=== PATIENT | female | born 1940 | race Caucasian/White ===

== ENCOUNTER 2022-05-06 15:00 | Inpatient (IN) | payer MEDICARE, OTHER, SELFPAY ==
--- NOTE | ~2022-05-06 | MR_ITS ---
EXAMINATION: MRI OF THE BRAIN WITHOUT CONTRAST CLINICAL INFORMATION: Vertigo. Assess for cerebellar infarction. COMPARISON: CT scan of the head 05/06/2022. TECHNIQUE: MRI of the brain was obtained using routine sequences without contrast. FINDINGS: There is a punctate focus of increased diffusion signal in the left centrum semiovale probably, which has slightly hyperintense ADC map signal with corresponding hyperintense T2/FLAIR signal, consistent with a subacute infarct. No other diffusion abnormalities are demonstrated. No mass effect or midline shift is seen. There is mild commensurate prominence of the ventricles and sulci consistent with diffuse volume loss. There are extensive areas of increased T2 and FLAIR signal in the periventricular and subcortical white matter, and in the sam which are most consistent with chronic microvascular ischemic changes. There are chronic lacunar infarcts in the basal ganglia and periventricular regions bilaterally, and there are chronic infarcts in the bilateral cerebellar hemispheres. No extra-axial fluid collections are seen. No pathologic magnetic susceptibility artifact is identified on the gradient refocused acquisition. The craniovertebral junction, marrow signal, and midline structures are normal. The major intracranial flow-voids at the level of the [place] are preserved. The dural venous sinus flow-voids are maintained. There is moderate right and trace left fluid in the mastoid air cells. There is mucoperiosteal thickening in the bilateral ethmoid sinuses. The right frontal sinus is hypoplastic. MR/MR head/brain wo con IMPRESSION: 1. There is likely a punctate subacute infarct in the left centrum semiovale. There is no evidence of acute infarction or hemorrhage. No masses are demonstrated. 2. There is diffuse volume loss and there is extensive chronic microvascular ischemic disease with chronic lacunar infarcts as described above.
--- NOTE | ~2022-05-06 | CT_ITS ---
EXAMINATION: CT HEAD WITHOUT CONTRAST CLINICAL INFORMATION: Dizziness. COMPARISON: None. TECHNIQUE: Contiguous axial imaging was performed from the skull base to vertex without intravenous administration of contrast. This CT examination was performed using dose optimization techniques as appropriate, variously including the following: *Automated exposure control *Adjustment of mA and/or kV according to patient size (this includes techniques or standardized protocols for targeted exams where dose is matched to indication/reason for exam; i.e. extremities or head) *Use of iterative reconstruction technique DLP: 703 mGy-cm. FINDINGS: There is no intracranial hemorrhage, large infarction, or mass lesion. There is no extra-axial collection. The ventricles are normal in size and configuration without evidence of hydrocephalus. Moderate patchy hypoattenuation is seen within the cerebral white matter, typical of chronic microangiopathy. There is a small chronic lacunar infarct in the right cerebellum. The visualized paranasal sinuses and mastoid air cells are clear. The calvarium is intact. CT/CT head/brain wo IV con IMPRESSION: No acute intracranial abnormality. Background changes of chronic microangiopathy. Small chronic lacunar infarct in the right cerebellum.
--- NOTE | ~2022-05-06 | XR_ITS ---
EXAMINATION: XR CHEST CLINICAL INFORMATION: Dizziness COMPARISON: None TECHNIQUE: Portable upright AP view of the chest was obtained. FINDINGS: There is no pneumothorax, segmental or lobar airspace consolidation, or groundglass opacity. The costophrenic sulci are clear. There is small nodule right lateral base and small nodule left lateral base, both just under 5 mm, unknown chronicity. The heart is normal in size. The hilar and mediastinal contours are unremarkable. There are degenerative changes thoracic spine. XR/XR chest 1V IMPRESSION: 1. No pneumothorax, airspace consolidation, or effusion. 2. Small nodule right lateral base and left lateral base, both just under 5 mm, unknown chronicity.
--- NOTE | ~2022-05-06 | US_ITS ---
EXAMINATION: US EXTRACRANIAL CAROTID DUPLEX, BILATERAL CLINICAL INFORMATION: Stroke COMPARISON: None TECHNIQUE: Real-time ultrasound and Doppler techniques (integrating B-mode 2-D vascular images, Doppler spectral analysis and color-flow Doppler imaging) were utilized to interrogate the extracranial carotid arteries, the vertebral arteries and proximal subclavian arteries bilaterally. The degree of stenosis is determined by criteria similar to NASCET. FINDINGS: Right Side: 1. There is minimal atherosclerotic plaque seen in the bifurcation/proximal ICA region. 2. The common carotid artery PSV proximally is 71 cm/s and distally 47 cm/s. 3. The proximal internal carotid artery velocities are 42 cm/s systolic and 17 cm/s diastolic. 4. The proximal external carotid artery PSV is 97 cm/s. 5. The vertebral artery shows antegrade flow. 6. The subclavian artery waveforms are normal. Left Side: 1. There is minimal atherosclerotic plaque seen in the bifurcation/proximal ICA region. 2. The common carotid artery PSV proximally is 58 cm/s and distally 64 cm/s. 3. The proximal internal carotid artery velocities are 39 cm/s systolic and 18 cm/s diastolic. 4. The proximal external carotid artery PSV is 86 cm/s. 5. The vertebral artery shows antegrade flow. 6. The subclavian artery waveforms are normal. US/US carotid duplex BI IMPRESSION: 1. RIGHT: Minimal, non-hemodynamically significant stenosis of the proximal right internal carotid artery corresponding to a 0-49% stenosis by velocity criteria. 2. LEFT: Minimal, non-hemodynamically significant stenosis of the proximal left internal carotid artery corresponding to a 0-49% stenosis by velocity criteria.
--- NOTE | 2022-05-06 15:21 | ECG_ITS ---
Test Reason : general medical Blood Pressure : / mmHG Vent. Rate : 087 BPM Atrial Rate : 087 BPM P-R Int : 204 ms QRS Dur : 074 ms QT Int : 384 ms P-R-T Axes : 030 -24 010 degrees QTc Int : 462 ms Normal sinus rhythm ST & T wave abnormality, consider anterior ischemia Abnormal ECG No previous ECGs available Referred By: Claudia Goddard Electronically Signed By:MARQUITA LARSON
[2022-05-06 15:24] VITALS: BP 124/72; BP 131/84; PULSE 88; PULSE 90; RESP 20; O2SAT 90; O2SAT 95; BMI 25.0
--- NOTE | 2022-05-06 15:24 | ED.GENADULT ---
HPI - General Adult General Chief complaint: General Medical Stated complaint: DIZZY,WEAK,NAUSEA,VOMITING PER EMS Time Seen by Provider: 05/06/22 15:11 Source: patient and EMS Mode of arrival: EMS Limitations: no limitations History of Present Illness HPI narrative: 82 year old female came in by EMS from intermediate for evaluation of generalized weakness, chills, body aches, nausea, vomiting, dizziness ( room spinning) no known sick contact that the patient exposed to, however patient lives in the intermediate. Patient also complaining of chest pain with coughing but no SOB. No fever. No weakness or numbness. Patient mainly here today for vertigo for the past 2 days feeling room spinning, declined any focal weakness or numbness. No nausea or vomiting. Related Data Allergies Allergy/AdvReac Type Severity Reaction Status Date / Time No Known Allergies Allergy Verified 05/06/22 15:21 Review of Systems Review of Systems: All other systems are reviewed and are negative Constitutional: Reports as per HPI and Reports no additional constitutional complaints Eyes: Reports as per HPI and Reports no additional eye complaints Reports system reviewed and no additional complaints, except as documented Cardiovascular: Reports as per HPI and Reports no additional cardiovascular complaints Respiratory: Reports as per HPI and Reports no additional respiratory complaints Gastrointestinal: Reports as per HPI and Reports no additional gastrointestinal complaints Genitourinary: Reports no additional female genitourinary complaints Musculoskeletal: Reports no additional musculoskeletal complaints Skin/Breast: Reports system reviewed and no additional complaints, except as docu Psychiatric: Reports no additional psychiatric complaints Endocrine: Reports no additional endocrine complaints Hematologic/Lymphatic: Reports no additional hematologic/lymphatic complaints Allergic/Immunologic: Reports no additional allergic/immunologic complaints Reports system reviewed and no additional complaints, except as documented and Reports Abnormal speech present PMFSH Social History Social History Alcohol intake: never Smoked in Last 30 Days: No Use of substances other than those prescribed or required for medical reasons: No Advance Directives: No Advance Directives Information Provided: Yes Physical Exam ED Vital Signs: Vital Signs - 24 hr 05/06/22 15:24 05/06/22 15:54 05/06/22 17:15 Temperature 98.2 F 99.2 F Pulse Rate 88 89 80 Respiratory Rate 20 28 H 18 Blood Pressure 131/84 131/84 134/81 Pulse Oximetry 95 96 97 Oxygen Delivery Method Nasal Cannula Nasal Cannula Nasal Cannula Oxygen Flow Rate 2 2 BMI result Body Mass Index 25.0 vital signs have been reviewed as appeared to be correct. Blood pressure normal. Heart rate normal. Respiration rate normal. Temperature normal. Oxygen saturation normal. Appearance: Alert. Oriented X3. No acute distress. Head: Normal external exam. Normocephalic. Atraumatic. No [place] signs noted. No raccoon eyes noted Eyes: PERRLA. EOMI. Conjunctiva and sclera normal. Eyelids normal. ENT: TM's Normal. Pharynx normal. Uvula midline. Moist mucous membranes. No trismus noted. No drooling noted. No muffled voice noted. Neck: Normal inspection. Neck supple. FROM. No adenopathy. Thyroid Normal. No meningeal signs. No neck mass noted. CVS: Normal heart rate and rhythm. Heart sound normal. No murmurs noted. Pulses normal throughout. Respiratory: No respiratory distress. Painless inspiration. Breath sounds normal. No wheezes/rales/rhonchi noted. Chest nontender. No accessory muscle usage noted or decreased air movement noted. Abdomen: Soft and nontender. Bowel sounds normal in all 4 quadrants. No distention noted. No organomegaly noted. No visible injury noted. Back: No CVA tenderness. Full range of motion noted. Skin: Skin warm and dry. Normal skin color. Normal skin turgor. No rashes/lesions/lacerations noted. Extremities: No lower extremity edema. Extremities exhibit normal range of motion. Extremities nontender. Neuro: Oriented X 3. Cranial nerve exam: II-XII are grossly intact No motor deficit. No sensory deficit. Reflexes normal. Course Course Course Narrative: 82-year-old female with flu-like symptoms patient tested positive for the flu, patient also been having vertigo, CT/MRI revealing subacute infarction, will start the patient on aspirin and admitted for further neurological evaluation. Medications Administered Discontinued Medications Generic Name Dose Route Start Last Admin Trade Name Freq PRN Reason Stop Dose Admin Sodium Chloride 1,000 mls @ 999 mls/hr 05/06/22 15:21 05/06/22 18:53 Ns IV 05/06/22 16:21 Infused .Q1H1M ONE Infusion Meclizine HCl 25 mg 05/06/22 15:28 05/06/22 16:10 Meclizine Hcl 25 Mg Tablet PO 05/06/22 15:29 25 mg ONCE ONE Administration Medical Decision Making Differential Diagnosis Differential Diagnoses: The differential diagnosis associated with the presentation includes ( Influenza/ COVID 19 infection/ RSV / peripheral vertigo / cerebellar CVA.) Admission/Observation Consideration of admission/observation: Escalation of care including admission/observation considered Consult Healthcare Provider Management of the patient was discussed with: Hospitalist Lab Data MDM Lab Attestation statement: I reviewed the patient's lab results. Result Diagrams: 05/06/22 16:03 05/06/22 16:32 Labs: Lab Results 05/06/22 05/06/22 05/06/22 Range/Units 16:03 16:03 16:03 WBC 8.0 (4.8-10.8) X10*3/uL RBC 5.48 (4.20-5.50) X10*6/uL Hgb 14.7 (12.0-16.0) g/dl Hct 44.5 (37.0-47.0) % MCV 81.2 (80.0-98.0) fL MCH 26.8 L (27.0-33.0) pg MCHC 33.0 (31.0-35.0) g/dl RDW 14.4 (11.0-16.0) % Plt Count 237 (160-400) X10*3/uL MPV 9.3 L (9.4-12.3) fL Immature Gran % (Auto) 0.3 (0.0-0.4) % Neut % (Auto) 80.0 H (45-73) % Lymph % (Auto) 6.5 L (20-40) % [place] % (Auto) 12.4 H (2-11) % Eos % (Auto) 0.0 (0-4) % Baso % (Auto) 0.8 (0-2) % Lymph # (Auto) 0.5 L (1.2-4.9) X10*3/uL [place] # (Auto) 1.0 (0.1-1.2) X10*3/uL Eos # (Auto) 0.0 (0.0-0.4) X10*3/uL Baso # (Auto) 0.1 (0.0-0.2) X10*3/uL Abs Immat Gran (auto) 0.02 (0.00-0.03) X10*3/uL Absolute Neuts (auto) 6.4 (2.0-8.3) x10*3/uL Absolute Nucleated RBC 0.000 (0.0-0.012) X10*3/uL Nucleated RBC % (auto) 0.0 (0.0-0.2) /100WBC Sodium (135-145) mmol/L Potassium (3.3-5.1) mmol/L Chloride (96-108) mmol/L Carbon Dioxide (22-29) mmol/L Anion Gap (12-20) BUN (9-16) mg/dL Creatinine (0.5-1.4) mg/dL Estim Creat Clear Calc Estimated GFR Random Glucose (60-115) mg/dL Calcium (8.4-10.2) mg/dL Total Bilirubin (0.0-1.0) mg/dL Direct Bilirubin (0.0-0.5) mg/dL AST (5-31) U/L ALT (0-31) U/L Alkaline Phosphatase (39-117) U/L Troponin I High Sens 8.8 (<3.5-17.0) ng/L B-Natriuretic Peptide 35 (<100) pg/mL Total Protein (6.5-8.0) g/dL Albumin (3.5-5.0) g/dL Lipase (8-78) U/L Urine Color Urine Appearance Urine pH (5.0-9.0) Ur Specific [place] (1.005-1.025) Urine Protein (Neg-Trace) mg/dL Urine Glucose (UA) (Negative) mg/dL Urine Ketones (Negative) mg/dL Urine Blood (Negative) Urine Nitrite (Negative) Ur Leukocyte Esterase (Negative) Influenza Type A (PCR) (Negative) Influenza Type B (PCR) (Negative) RSV RNA Qual (PCR) (Negative) SARS-CoV-2 RNA (RT-PCR) (Negative) 05/06/22 05/06/22 05/06/22 Range/Units 16:03 16:32 20:55 WBC (4.8-10.8) X10*3/uL RBC (4.20-5.50) X10*6/uL Hgb (12.0-16.0) g/dl Hct (37.0-47.0) % MCV (80.0-98.0) fL MCH (27.0-33.0) pg MCHC (31.0-35.0) g/dl RDW (11.0-16.0) % Plt Count (160-400) X10*3/uL MPV (9.4-12.3) fL Immature Gran % (Auto) (0.0-0.4) % Neut % (Auto) (45-73) % Lymph % (Auto) (20-40) % [place] % (Auto) (2-11) % Eos % (Auto) (0-4) % Baso % (Auto) (0-2) % Lymph # (Auto) (1.2-4.9) X10*3/uL [place] # (Auto) (0.1-1.2) X10*3/uL Eos # (Auto) (0.0-0.4) X10*3/uL Baso # (Auto) (0.0-0.2) X10*3/uL Abs Immat Gran (auto) (0.00-0.03) X10*3/uL Absolute Neuts (auto) (2.0-8.3) x10*3/uL Absolute Nucleated RBC (0.0-0.012) X10*3/uL Nucleated RBC % (auto) (0.0-0.2) /100WBC Sodium 134 L (135-145) mmol/L Potassium 3.9 (3.3-5.1) mmol/L Chloride 101 (96-108) mmol/L Carbon Dioxide 25 (22-29) mmol/L Anion Gap 12 (12-20) BUN 19 H (9-16) mg/dL Creatinine 0.78 (0.5-1.4) mg/dL Estim Creat Clear Calc 51.7 Estimated GFR > 60 Random Glucose 104 (60-115) mg/dL Calcium 8.5 (8.4-10.2) mg/dL Total Bilirubin 0.6 (0.0-1.0) mg/dL Direct Bilirubin 0.2 (0.0-0.5) mg/dL AST 20 (5-31) U/L ALT 23 (0-31) U/L Alkaline Phosphatase 58 (39-117) U/L Troponin I High Sens (<3.5-17.0) ng/L B-Natriuretic Peptide (<100) pg/mL Total Protein 6.7 (6.5-8.0) g/dL Albumin 3.9 (3.5-5.0) g/dL Lipase 15 (8-78) U/L Urine Color Yellow Urine Appearance Clear Urine pH 5.5 (5.0-9.0) Ur Specific [place] 1.020 (1.005-1.025) Urine Protein Trace (Neg-Trace) mg/dL Urine Glucose (UA) Negative (Negative) mg/dL Urine Ketones Trace (Negative) mg/dL Urine Blood Small (1+) H (Negative) Urine Nitrite Negative (Negative) Ur Leukocyte Esterase Negative (Negative) Influenza Type A (PCR) POSITIVE A (Negative) Influenza Type B (PCR) NEGATIVE (Negative) RSV RNA Qual (PCR) NEGATIVE (Negative) SARS-CoV-2 RNA (RT-PCR) NEGATIVE (Negative) Independent Interpretation I performed an independent interpretation of an: EKG ( Normal sinus rhythm at 87 beats per minute, left axis deviation, first-degree AV block, T-wave inversion in V 1- V6 , no old EKG to compare.), Plain X-Ray ( No acute intrathoracic pathology.) and CT Scan ( No acute intracranial pathology.) Radiology Impression Discussion of test interpretation with radiology: I have reviewed the radiologist's reading. Discharge Plan Discharge Clinical Impression: Vertigo, Influenza A Patient Disposition: Admitted As Inpatient
[2022-05-06 15:54] VITALS: BP 131/84; PULSE 89; RESP 28; TEMP 36.8; O2SAT 96
[2022-05-06 16:09] LABS: MANUAL DIFF FLAG NO
[2022-05-06] MEDS: 0.9 % Sodium Chloride 1,000 ML 999 ML IV (16:10)
[2022-05-06] MEDS: Meclizine HCl 25 MG TABLET PO (16:10)
[2022-05-06 16:11] LABS: Basophils Absolute Auto 0.1 X10*3/uL (0.0-0.2); Basophils Percent Auto 0.8 % (0-2); Hematocrit 44.5 % (37.0-47.0); Hemoglobin 14.7 g/dl (12.0-16.0); Imm Gran Abs Auto 0.02 X10*3/uL (0.00-0.03); Imm Gran Pct Auto 0.3 % (0.0-0.4); Lymphocytes Absolute Auto 0.5 X10*3/uL (1.2-4.9); Lymphocytes Percent Auto 6.5 % (20-40); Mean Corpuscular Hemoglobin 26.8 pg (27.0-33.0); Mean Corpuscular Volume 81.2 fL (80.0-98.0); Mean Platelet Volume 9.3 fL (9.4-12.3); Monocytes Percent Auto 12.4 % (2-11); Neutrophils Absolute Auto 6.4 x10*3/uL (2.0-8.3); Platelet Count 237 X10*3/uL (160-400); Red Blood Count 5.48 X10*6/uL (4.20-5.50); Red Cell Distribution Width 14.4 % (11.0-16.0)
[2022-05-06 16:37] LABS: Troponin-I High Sensitivity 8.8 ng/L (<3.5-17.0)
[2022-05-06 16:59] LABS: Alanine Aminotransferase 23 U/L (0-31); Albumin Level 3.9 g/dL (3.5-5.0); Alkaline Phosphatase 58 U/L (39-117); Anion Gap 12 (12-20); Aspartate Amino Transferase 20 U/L (5-31); Bilirubin Direct 0.2 mg/dL (0.0-0.5); Bilirubin Total 0.6 mg/dL (0.0-1.0); Blood Urea Nitrogen 19 mg/dL (9-16); Calcium 8.5 mg/dL (8.4-10.2); Carbon Dioxide 25 mmol/L (22-29); Chloride 101 mmol/L (96-108); Creatinine Clr Calc Pharmacy 51.7; Estimated Glomerular Filt Rate > 60; Glucose Random 104 mg/dL (60-115); Lipase 15 U/L (8-78); Potassium 3.9 mmol/L (3.3-5.1); Sodium 134 mmol/L (135-145); Total Protein 6.7 g/dL (6.5-8.0)
[2022-05-06 17:15] VITALS: BP 134/81; PULSE 80; RESP 18; TEMP 37.3; O2SAT 97
[2022-05-06 18:22] LABS: B Type Natriuretic Peptide 35 pg/mL (<100)
[2022-05-06 20:10] LABS: Influenza A PCR POSITIVE (Negative); Influenza B PCR NEGATIVE (Negative); Resp Syncy Virus RNA Qual PCR NEGATIVE (Negative); SARS COV2 PCR INHOUSE NEGATIVE (Negative)
[2022-05-06 21:05] LABS: Appearance Urine Clear; Color Urine Yellow; Glucose Urine UA Negative (Negative); Leukocyte Esterase Urine Negative (Negative); Nitrite Urine Negative (Negative); PH 5.5 (5.0-9.0); UMIC TRIGGER UACC YES; Urine Blood Small (1+) (Negative); Urine Ketones Trace mg/dL (Negative); Urine Protein Trace mg/dL (Neg-Trace)
[2022-05-06] MEDS: Aspirin Enteric Coated 81 MG TABLET.DR PO (21:27)
--- NOTE | 2022-05-06 21:28 | PC.NURSE ---
nurse swallow eval performed by this rn. JEFF. pt medicated according to mar
--- NOTE | 2022-05-06 21:39 | P.HPHOSP_ITS ---
History of Present Illness Date of Service: 05/06/22 Chief Complaint: vomiting 82-year-old female With a past medical history of COPD presents to the hospital with complaints of vomiting, as well as vertigo and generalized weakness.. Patient reports that she of significant nausea and vomiting the night prior to as presentation, she woke up feeling very dizzy and generally weak. Patient reports that she has chronic weakness in her lower extremity but has not worsened. She uses a walker at baseline. Denies any upper extremity weakness numbness or tingling, no facial droop or changes in her speech. Margarita ent denies any cough, no shortness of breath, no fever or chills. Denies any chest pain, no palpitations, no abdominal pain, no diarrhea constipation, no urinary symptoms. On arrival to the ED patient hemodynamically stable (Patient reports that she uses oxygen at baseline 2 L but usually does not need it) Labs are significant for WBC count of 8.0, hemoglobin 14.7, hematocrit 44.56, labs otherwise unremarkable, UA positive for blood with no acute infection, Viral serology shows positive influenza A chest x-ray shows no pneumothorax airspace consolidation or effusion, to lung nodules less than [address] done shows no acute intracranial abnormality, background changes of chronic microangiopathy, given the vertigo patient underwent MRI of the brain which showed a likely punctate subacute infarct in the left centrum semiovale and diffuse volume loss with chronic microvascular ischemic disease and chronic lacunar infarct patient will be admitted for further management Review of Systems Review of Systems: Yes all other systems are reviewed and are negative [facility] Medical History (Updated 05/07/22 @ 05:29 by Colten Lux MD) History of breast cancer History of COPD History of gastroesophageal reflux (GERD) Surgical History (Updated 05/07/22 @ 05:27 by Colten Lux MD) History of left mastectomy History of tonsillectomy Social History (Updated 05/07/22 @ 05:27 by Colten Lux MD) Alcohol intake: never Patient Tobacco Use Status: Former Tobacco user Smoked in Last 30 Days: No Use of substances other than those prescribed or required for medical reasons: No Advance Directives: No Advance Directives Information Provided: Yes Meds Allergies Allergy/AdvReac Type Severity Reaction Status Date / Time No Known Allergies Allergy Verified 05/06/22 15:21 Active Medications: Current Medications Aspirin (Aspirin Enteric Coated 81 Mg Tablet.) 81 mg PO DAILY [facility] Last Admin: 05/06/22 21:27 Dose: 81 mg Home Medications Medication Instructions Recorded Confirmed Last Taken Type fluticasone propionate 50 2 spray intranasal DAILY 05/06/22 05/06/22 Unknown History mcg/actuation nasal spray,suspension Physical Exam Vital Signs and Narrative: Vital Signs: Last Vital Signs Temp 99.2 F 05/06/22 17:15 Pulse 80 05/06/22 17:15 Resp 18 05/06/22 17:15 BP 134/81 05/06/22 17:15 Pulse Ox 97 05/06/22 17:15 O2 Del Method 05/06/22 17:15 O2 Flow Rate 2 05/06/22 17:15 Oxygen Flow Rate 2 05/06/22 15:24 BMI result Body Mass Index 25.0 Const: General: cooperative and no acute distress Orientation/consciousness: patient oriented x3 HEENT: Other: slightly hard of hearing Eyes: General: appearance normal, both eyes and all related structures Resp: Effort & Inspection: normal respiratory effort Auscultation: clear to auscultation bilaterally Cardio: Rate: regular rate Rhythm: regular rhythm GI: Palpation (GI): Soft to palpation Auscultation: normal bowel sounds Skin: General skin exam: no rashes or lesions noted Neuro: Other: no neurological deficits, strength his 5/5 in upper extremities, slightly weaker in the lower extremities with no significant deficit General: patient oriented x3 Cognition (Neuro): normal cognition Extrem: General: Yes normal to inspection and Yes no pedal edema Results Labs CBC and Chem 7: 05/06/22 16:03 05/06/22 16:32 Labs: Laboratory Results - last 24 hr 05/06/22 05/06/22 05/06/22 16:03 16:03 16:03 MCV 81.2 MCH 26.8 L MCHC 33.0 RDW 14.4 Plt Count 237 MPV 9.3 L Immature Gran % (Auto) 0.3 Neut % (Auto) 80.0 H Lymph % (Auto) 6.5 L [place] % (Auto) 12.4 H Eos % (Auto) 0.0 Baso % (Auto) 0.8 Lymph # (Auto) 0.5 L [place] # (Auto) 1.0 Eos # (Auto) 0.0 Baso # (Auto) 0.1 Abs Immat Gran (auto) 0.02 Absolute Neuts (auto) 6.4 Absolute Nucleated RBC 0.000 Nucleated RBC % (auto) 0.0 Anion Gap Estim Creat Clear Calc Estimated GFR Random Glucose Calcium Total Bilirubin Direct Bilirubin AST ALT Alkaline Phosphatase Troponin I High Sens 8.8 B-Natriuretic Peptide 35 Total Protein Albumin Lipase Urine Color Urine Appearance Urine pH Ur Specific [place] Urine Protein Urine Glucose (UA) Urine Ketones Urine Blood Urine Nitrite Ur Leukocyte Esterase Influenza Type A (PCR) Influenza Type B (PCR) RSV RNA Qual (PCR) SARS-CoV-2 RNA (RT-PCR) 05/06/22 05/06/22 05/06/22 16:03 16:32 20:55 MCV MCH MCHC RDW Plt Count MPV Immature Gran % (Auto) Neut % (Auto) Lymph % (Auto) [place] % (Auto) Eos % (Auto) Baso % (Auto) Lymph # (Auto) [place] # (Auto) Eos # (Auto) Baso # (Auto) Abs Immat Gran (auto) Absolute Neuts (auto) Absolute Nucleated RBC Nucleated RBC % (auto) Anion Gap 12 Estim Creat Clear Calc 51.7 Estimated GFR > 60 Random Glucose 104 Calcium 8.5 Total Bilirubin 0.6 Direct Bilirubin 0.2 AST 20 ALT 23 Alkaline Phosphatase 58 Troponin I High Sens B-Natriuretic Peptide Total Protein 6.7 Albumin 3.9 Lipase 15 Urine Color Yellow Urine Appearance Clear Urine pH 5.5 Ur Specific [place] 1.020 Urine Protein Trace Urine Glucose (UA) Negative Urine Ketones Trace Urine Blood Small (1+) H Urine Nitrite Negative Ur Leukocyte Esterase Negative Influenza Type A (PCR) POSITIVE A Influenza Type B (PCR) NEGATIVE RSV RNA Qual (PCR) NEGATIVE SARS-CoV-2 RNA (RT-PCR) NEGATIVE Imaging Radiologist's Impressions: Impressions Chest X-Ray 05/06/22 15:35 IMPRESSION: 1. No pneumothorax, airspace consolidation, or effusion. 2. Small nodule right lateral base and left lateral base, both just under 5 mm, unknown chronicity. Head CT 05/06/22 15:48 IMPRESSION: No acute intracranial abnormality. Background changes of chronic microangiopathy. Small chronic lacunar infarct in the right cerebellum. Brain MRI 05/06/22 19:50 IMPRESSION: 1. There is likely a punctate subacute infarct in the left centrum semiovale. There is no evidence of acute infarction or hemorrhage. No masses are demonstrated. 2. There is diffuse volume loss and there is extensive chronic microvascular ischemic disease with chronic lacunar infarcts as described above. Assessment and Plan (1) CVA (cerebral vascular accident): Status: Acute (2) Influenza A: Status: Acute (3) Vertigo: Status: Acute Plan this is an 82-year-old female with past medical history of COPD as well as remote history of breast cancer presents to the hospital with complaints of vomiting, as well as dizziness found to have acute influenza infection as well as subacute infarct # CVA - no history of underlying arrhythmias that are known - patient denies any underlying risk factors - at this time will start patient on aspirin, high-dose statin - will obtain carotid Dopplers, echocardiogram - neurology consulted - PT OT # vertigo - likely secondary to above - PT OT consulted # influenza a infection - no acute respiratory failure, patient uses 2 L of oxygen at baseline - will start her on Tamiflu # history of COPD - no exacerbation - continue home inhaler DVT prophylaxis: Early ambulation given patient's new CVA, patient require minimum 2 night inpatient hospital stay further evaluation and monitoring Time Spent With Patient Time: Total time managing care of this patient today ____ minutes. Quality Stroke Does the patient have a stroke diagnosis?: No VTE Prior VTE?: No VTE Risk Level:: Medical - low VTE Device Contraindication: N/A - Device Ordered VTE Drug Contraindication: Treatment Not Indicated
[2022-05-06 21:41] LABS: Bacteria Urine None Seen (None Seen); Hyaline Casts Urine 0-2 /LPF (0-2); WBC Urine 0-5 /HPF (0-5)
--- NOTE | 2022-05-06 22:03 | PHA.MEDREC ---
Pharmacy Consult ? Medication Reconciliation Pharmacy has completed the medication reconciliation. sPOKE WITH PATIENT IN THE ED
[2022-05-07] VITALS (11 sets, daily range): BP systolic 94–155; BP diastolic 53–80; PULSE 62–93; RESP 15–18; TEMP 36.2–37.8; O2SAT 93–98; BMI 24.9
[2022-05-07] MEDS: Oseltamivir Phosphate 75 MG CAPSULE PO ×3 (00:03→23:19)
--- NOTE | 2022-05-07 00:33 | PC.NURSE ---
this rn attempted to give nurse to nurse report. no answer on phone once transferred to floor. will try again
--- NOTE | 2022-05-07 00:50 | PC.NURSE ---
this rn attempted again to call nurse to nurse report. this rn unable to give report at this time
[2022-05-07 06:02] LABS: MANUAL DIFF FLAG NO
[2022-05-07 06:14] LABS: Basophils Absolute Auto 0.1 X10*3/uL (0.0-0.2); Basophils Percent Auto 0.8 % (0-2); Eosinophils Absolute Auto 0.1 X10*3/uL (0.0-0.4); Eosinophils Percent Auto 1.2 % (0-4); Hematocrit 41.6 % (37.0-47.0); Hemoglobin 13.4 g/dl (12.0-16.0); Imm Gran Abs Auto 0.02 X10*3/uL (0.00-0.03); Imm Gran Pct Auto 0.3 % (0.0-0.4); Lymphocytes Percent Auto 16.7 % (20-40); Mean Corpuscular HGB Conc 32.2 g/dl (31.0-35.0); Mean Corpuscular Volume 83.7 fL (80.0-98.0); Mean Platelet Volume 9.7 fL (9.4-12.3); Monocytes Absolute Auto 0.8 X10*3/uL (0.1-1.2); Monocytes Percent Auto 12.8 % (2-11); Neutrophils Absolute Auto 4.1 x10*3/uL (2.0-8.3); Neutrophils Percent Auto 68.2 % (45-73); Platelet Count 193 X10*3/uL (160-400); Red Blood Count 4.97 X10*6/uL (4.20-5.50); Red Cell Distribution Width 14.5 % (11.0-16.0)
[2022-05-07 06:45] LABS: Anion Gap 12 (12-20); Blood Urea Nitrogen 18 mg/dL (9-16); Calcium 7.6 mg/dL (8.4-10.2); Carbon Dioxide 22 mmol/L (22-29); Chloride 106 mmol/L (96-108); Creatinine Clr Calc Pharmacy 56.9; Estimated Glomerular Filt Rate > 60; Glucose Random 82 mg/dL (60-115); Potassium 3.9 mmol/L (3.3-5.1); Sodium 136 mmol/L (135-145)
[2022-05-07 06:48] LABS: Cholesterol 115 mg/dL; HDL Cholesterol 37 mg/dL; LDL Cholesterol Calculated 69 mg/dl; Triglycerides 48 mg/dL
--- NOTE | 2022-05-07 07:00 | CA_ITS ---
Transthoracic Echocardiogram Patient (Last, First, Middle): Tatum Johns, Gender: Female Date of : 1940 Age: 82 Procedure Date: 05/07/2022 Procedure Type: Transthoracic Echocardiogram Location: [facility] [place] Height: 165.1 cm Weight: 67.59 kg BSA: 1.75 m2 Heart Rate: bpm BP: 126 / 70 mmHg Stage Set Designer: Referring MD: Colten Lux MD Symptoms: stroke Study Quality: Adequate ECG Rhythm: Sinus Conclusions: - The left ventricular systolic function is normal. The visually estimated ejection fraction is between 65-70%. - No obvious valvular pathology seen on this study. Findings Left Ventricle Normal left ventricular cavity size. There is mildly increased left ventricular wall thickness. The left ventricular systolic function is normal. The visually estimated ejection fraction is between 65-70%. There is no evidence of regional wall motion abnormalities. Diastolic function is normal for age. Right Ventricle Normal right ventricular cavity size and systolic function. Atria Both atria are normal in size. Aortic Valve The aortic valve was not well visualized. There is no aortic valve stenosis. There is no aortic valve regurgitation. Mitral Valve The mitral valve appears normal. There is no mitral valve regurgitation. There is no mitral valve stenosis. Pulmonic Valve The pulmonic valve is likely normal. Tricuspid Valve There is trace tricuspid valve regurgitation. There is no evidence of pulmonary hypertension. Great Vessels The aorta was not well visualized. The sinuses of valsalva is normal in size. Venous The inferior vena cava is normal in size and collapses greater than 50% with inspiration. Pericardium/Pleural There is no evidence of pericardial effusion. Prior Study Comparison No prior study available for comparison. Recommendations, Care & Conclusions No obvious valvular pathology seen on this study. Measurements 2D Linear Measurements IVSd: 1.20 0.6-0.9/0.6-1.0 cm LVIDd: 4.42 3.9-5.3/4.2-5.9 cm LVIDd Index: 2.53 2.4-3.2/2.2-3.1 cm/m2 LVIDs: 2.53 2.0-3.6 cm LVPWd: 1.21 0.7-1.1 cm Ao Root: 3.60 2.1-3.5 cm LA Diam: 2.70 2.7-3.8/3.0-4.0 cm LAIDs Index: 1.54 1.5-2.3 cm/m2 LV Mass: 241.55 67-162/88-224 g LV Mass Index: 138.03 43-95/49-115 g/m2 LVOT Diam: 2.00 3.0+(-)1.3 cm 2D Systolic Function EF 4C: 65.80 >55% EF 2C: 69.20 >55% EF BiP: 64.90 >55% Mitral Valve MV Pk E: 0.63 MV PK A: 0.96 MV Decel Time: 226.00 E/A: 0.70 E'Lateral: 7.18 E'Medial: 4.79 E/E' Med: 13.20 E/E' Lat: 8.80 PHT: 66.00 MVA PHT: 3.33 Decel Evans: 2.79 Aortic Valve AoV Pk Rosas: 1.68 AoV Mn Rosas: 1.02 AoV VTI: 0.29 AoV Pk Grad: 11.00 Aov Mn Grad: 5.00 CHANNING Cont.VTI: 2.44 LVOT LVOT Pk Rosas: 1.16 LVOT Mn Rosas: 0.80 LVOT VTI: 0.23 LVOT Pk Grad: 5.00 LVOT Mn Grad: 3.00 LVOT Diam: 2.00 LVOT Area: 3.14 Diastolic Function MV Pk E: 0.63 MV Pk A: 0.96 E/A: 0.70 E'Medial: 4.79 E/E' Med: 13.20 E' Laterial: 7.18 E/E' Lat: 8.80 Right Ventricle TAPSE (mm): 21.00 Tricuspid Valve TR Pk Rosas: 2.55 TR Pk Grad: 26.00 RA Press: 3.00 RVSP: 29.00 Great Vessels Aorta Ao Root-2D: 3.60 2.0-3.7 cm Pulmonary Valve PV Pk Rosas: 0.95 Peak PV Grad: 4.00 Updated in Other Vendor System with Status of Final Christian Whitman MD electronically signed on 05/07/2022 12:31:14 PM with status of Final
[2022-05-07] MEDS: Aspirin Enteric Coated 81 MG TABLET.DR PO (08:45)
[2022-05-07] MEDS: Atorvastatin Calcium 80 MG TABLET PO (08:45)
--- NOTE | 2022-05-07 08:58 | P.PNIM_ITS ---
Subjective Subjective Date of Service: 05/07/22 Interval History: Seen in follow-up for CVA, influenza a Interval history: Resting comfortably, sitting up in chair requesting breakfast. Continues on 1.5 L supplemental O2. Reporting dry cough and nasal congestion and generalized weakness. No shortness of breath, wheezing, nausea, vomiting, abdominal pain, diarrhea, or chest pain. Review of Systems General: No fevers, malaise, unintentional weight loss HEENT: +nasal congestion. No blurred vision, diplopia. No sore throat, nasal co ngestion, rhinorrhea, sinus pain, ear pain Cardiovascular: No chest pain, palpitations, or leg edema Respiratory: +cough. No shortness of breath, wheezing GI: No abdominal pain, nausea, vomiting, diarrhea, constipation MSK: No myalgia, back pain Neuro: No headaches, weakness, paresthesias Skin: No rashes or lesions Physical Exam Vital Signs: Vital Signs: Last Vital Signs Temp 97.9 F 05/07/22 07:09 Pulse 77 05/07/22 08:30 Resp 16 05/07/22 07:09 BP 126/70 05/07/22 08:30 Pulse Ox 96 05/07/22 08:30 O2 Del Method 05/07/22 07:09 O2 Flow Rate 2 05/07/22 07:09 Oxygen Flow Rate 2 05/06/22 15:24 BMI result Body Mass Index 24.9 Constitutional - Awake and Alert, No apparent distress Eyes - PERRLA, EOMI Ears: hard of hearing Cardiovascular - S1S2, RRR, No edema Respiratory - Normal lung expansion, Normal respiratory effort, No respiratory distress. Expiratory wheezes bilaterally Gastrointestinal - NT / ND; +BS; No rebound or guarding Extremities - no calf tenderness bilaterally, no swelling Skin - Warm/Dry Neurological - Alert & oriented x3 Psychological - Appropriate affect Objective Data Active Medications Acetaminophen (Acetaminophen 325 Mg Tablet) 650 mg PO Q6H PRN PRN Reason: Pain, Mild (Pain Scale 1-3) Aspirin (Aspirin Enteric Coated 81 Mg Tablet.) 81 mg PO DAILY REPLACED BY [facility] Last Admin: 05/07/22 08:45 Dose: 81 mg Documented By: BROOKLYN Atorvastatin Calcium (Atorvastatin Calcium 80 Mg Tablet) 80 mg PO DAILY REPLACED BY [facility] Last Admin: 05/07/22 08:45 Dose: 80 mg Documented By: BROOKLYN Docusate Sodium (Docusate Sodium 100 Mg Capsule) 100 mg PO DAILY PRN PRN Reason: Constipation Ondansetron HCl (Ondansetron Hcl 4 Mg/2 Ml Vial) 4 mg IVPUSH Q8H PRN PRN Reason: Nausea and Vomiting Oseltamivir Phosphate (Oseltamivir Phosphate 75 Mg Capsule) 75 mg PO Q12H CAT Stop: 05/11/22 11:01 Last Admin: 05/07/22 00:03 Dose: 75 mg Documented By: LIZZIE Pharmacy Consult (Consult Rx Perform Med Rec) 1 each MISCELLANE ONCE PRN PRN Reason: Consult order Labs CBC & Chem 7: 05/07/22 05:46 05/07/22 05:46 Labs: Laboratory Results - last 24 hr 05/06/22 05/06/22 05/06/22 16:03 16:03 16:03 MCV 81.2 MCH 26.8 L MCHC 33.0 RDW 14.4 Plt Count 237 MPV 9.3 L Immature Gran % (Auto) 0.3 Neut % (Auto) 80.0 H Lymph % (Auto) 6.5 L [place] % (Auto) 12.4 H Eos % (Auto) 0.0 Baso % (Auto) 0.8 Lymph # (Auto) 0.5 L [place] # (Auto) 1.0 Eos # (Auto) 0.0 Baso # (Auto) 0.1 Abs Immat Gran (auto) 0.02 Absolute Neuts (auto) 6.4 Absolute Nucleated RBC 0.000 Nucleated RBC % (auto) 0.0 Anion Gap Estim Creat Clear Calc Estimated GFR Random Glucose Calcium Total Bilirubin Direct Bilirubin AST ALT Alkaline Phosphatase Troponin I High Sens 8.8 B-Natriuretic Peptide 35 Total Protein Albumin Triglycerides Cholesterol LDL Cholesterol, Calc HDL Cholesterol Lipase Urine Color Urine Appearance Urine pH Ur Specific [place] Urine Protein Urine Glucose (UA) Urine Ketones Urine Blood Urine Nitrite Ur Leukocyte Esterase Urine RBC Urine WBC Ur Squamous Epith Cells Urine Bacteria Hyaline Casts Influenza Type A (PCR) Influenza Type B (PCR) RSV RNA Qual (PCR) SARS-CoV-2 RNA (RT-PCR) 05/06/22 05/06/22 05/06/22 16:03 16:32 20:55 MCV MCH MCHC RDW Plt Count MPV Immature Gran % (Auto) Neut % (Auto) Lymph % (Auto) [place] % (Auto) Eos % (Auto) Baso % (Auto) Lymph # (Auto) [place] # (Auto) Eos # (Auto) Baso # (Auto) Abs Immat Gran (auto) Absolute Neuts (auto) Absolute Nucleated RBC Nucleated RBC % (auto) Anion Gap 12 Estim Creat Clear Calc 51.7 Estimated GFR > 60 Random Glucose 104 Calcium 8.5 Total Bilirubin 0.6 Direct Bilirubin 0.2 AST 20 ALT 23 Alkaline Phosphatase 58 Troponin I High Sens B-Natriuretic Peptide Total Protein 6.7 Albumin 3.9 Triglycerides Cholesterol LDL Cholesterol, Calc HDL Cholesterol Lipase 15 Urine Color Yellow Urine Appearance Clear Urine pH 5.5 Ur Specific [place] 1.020 Urine Protein Trace Urine Glucose (UA) Negative Urine Ketones Trace Urine Blood Small (1+) H Urine Nitrite Negative Ur Leukocyte Esterase Negative Urine RBC 3-5 H Urine WBC 0-5 Ur Squamous Epith Cells 3-5 Urine Bacteria None Seen Hyaline Casts 0-2 Influenza Type A (PCR) POSITIVE A Influenza Type B (PCR) NEGATIVE RSV RNA Qual (PCR) NEGATIVE SARS-CoV-2 RNA (RT-PCR) NEGATIVE 05/07/22 05/07/22 05/07/22 05:46 05:46 05:46 MCV 83.7 MCH 27.0 MCHC 32.2 RDW 14.5 Plt Count 193 MPV 9.7 Immature Gran % (Auto) 0.3 Neut % (Auto) 68.2 Lymph % (Auto) 16.7 L [place] % (Auto) 12.8 H Eos % (Auto) 1.2 Baso % (Auto) 0.8 Lymph # (Auto) 1.0 L [place] # (Auto) 0.8 Eos # (Auto) 0.1 Baso # (Auto) 0.1 Abs Immat Gran (auto) 0.02 Absolute Neuts (auto) 4.1 Absolute Nucleated RBC 0.000 Nucleated RBC % (auto) 0.0 Anion Gap 12 Estim Creat Clear Calc 56.9 Estimated GFR > 60 Random Glucose 82 Calcium 7.6 L D Total Bilirubin Direct Bilirubin AST ALT Alkaline Phosphatase Troponin I High Sens B-Natriuretic Peptide Total Protein Albumin Triglycerides 48 Cholesterol 115 LDL Cholesterol, Calc 69 HDL Cholesterol 37 Lipase Urine Color Urine Appearance Urine pH Ur Specific [place] Urine Protein Urine Glucose (UA) Urine Ketones Urine Blood Urine Nitrite Ur Leukocyte Esterase Urine RBC Urine WBC Ur Squamous Epith Cells Urine Bacteria Hyaline Casts Influenza Type A (PCR) Influenza Type B (PCR) RSV RNA Qual (PCR) SARS-CoV-2 RNA (RT-PCR) Assessment and Plan (1) CVA (cerebral vascular accident): Status: Acute (2) Vertigo: Status: Acute (3) Influenza A: Status: Acute Plan this is an 82-year-old female with past medical history of COPD, chronic respiratory failure on 2L supplemental O2 at baseline, as well as remote history of breast cancer presents to the hospital with complaints of vomiting, as well as dizziness found to have acute influenza infection as well as subacute infarct #? CVA- punctate 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 No acute infarct or hemorrhage on MRI -? no history of underlying? arrhythmias that are known -? patient denies any underlying risk factors -? Continue asa 325mg - Carotid doppler negative for any hemodynamically significant stenosis - echocardiogram pending -? neurology consulted -? PT OT- recommending STR/acute - Continue telemetry #? vertigo -? likely secondary to above -? PT OT consulted #? influenza a infection -? no acute respiratory failure, patient uses 2 L of oxygen at baseline -? Continue Tamiflu #?COPD- No exacerbation -?Scatterered expiratory wheezing - Duonebs - Hold on any steroids for now as patient has no complaints -?continue home inhaler ?DVT prophylaxis:? Early ambulation, compression ?given patient's? new CVA, patient requires ongoing inpatient hospital stay ongoing evaluation and monitoring of possible causes of stroke in pt with poor outpt follow up and no known risk factors for CVA Time Spent With Patient Time: Total time managing care of this patient today 25 minutes Quality Stroke Does the patient have a stroke diagnosis?: No VTE Prior VTE?: No VTE Risk Level:: Medical - low VTE Device Contraindication: N/A - Device Ordered VTE Drug Contraindication: Treatment Not Indicated
--- NOTE | 2022-05-07 09:42 | PM.NEUROCN ---
History of Present Illness Data of Consult Service Date: 05/07/22 Primary Care Provider: Unknown Physician HPI Reason for consult: Dizziness, vomiting and weakness This is a 82-year-old female?with history of COPD, came in with complaints of vomiting, vertigo and generalized weakness. starting the night before. She woke up feeling very dizzy and generally weak.? Patient reports that she has chronic weakness in her lower extremity for which she uses a walker, that has not worsened.?Denies any upper extremity weakness, numbness or tingling, no facial droop or changes in her speech.? Patient denies any cough, no shortness of breath, no fever or chills.? Denies any chest pain, no palpitations, no urinary symptoms. Viral serology shows positive influenza A Head CT done shows no acute intracranial abnormality, chronic microangiopathy. MRI of the brain which showed a punctate subacute infarct high in the left centrum semiovale, diffuse volume loss with extensive chronic microvascular ischemic disease and chronic lacunar infarct Review of Systems Review of Systems: General: No fevers, malaise, unintentional weight loss HEENT: +nasal congestion. No blurred vision, diplopia. No sore throat, nasal congestion, rhinorrhea, sinus pain, ear pain Cardiovascular: No chest pain, palpitations, or leg edema Respiratory: +cough. No shortness of breath, wheezing GI: No abdominal pain, nausea, vomiting, diarrhea, constipation MSK: No myalgia, back pain Neuro: No headaches, weakness, paresthesias Skin: No rashes or lesions Yes all other systems are reviewed and are negative [facility] Past Medical History Medical History History of breast cancer History of COPD History of gastroesophageal reflux (GERD) Surgical History Surgical History History of left mastectomy History of tonsillectomy Social History Social History (Updated 05/07/22 @ 05:27 by Colten Lux MD) Housing: Other Housing Other:: Senior Care Do you presently have visiting nurse or other home services: No Alcohol intake: never Patient Tobacco Use Status: Former Tobacco user Smoked in Last 30 Days: No Use of substances other than those prescribed or required for medical reasons: No Have you been hit, kicked, punched, or otherwise hurt by someone within the past year? If so, by whom?: No Do you feel safe in your current relationship?: No Current Relationship Is there a partner from a previous relationship who is making you feel unsafe now?: No Are you made to feel afraid or neglected: No Advance Directives: No Advance Directives Information Provided: Yes Do you have thoughts of harming others: None Do you have a plan to hurt others: No Plan Recently lost weight without trying: No Nutrition Risks: No Nutritional Risk Patient : No : No Poor oral hygiene: No Meds Allergies Allergy/AdvReac Type Severity Reaction Status Date / Time No Known Allergies Allergy Verified 05/06/22 15:21 Active Medications: Current Medications Acetaminophen (Acetaminophen 325 Mg Tablet) 650 mg PO Q6H PRN PRN Reason: Pain, Mild (Pain Scale 1-3) Albuterol/Ipratropium (Albuterol/Iprat 2.5/0.5mg 3 Ml Ampul.Neb) 3 ml INHALE RQ6H WHILE AWAKE [facility] Aspirin (Aspirin Enteric Coated 81 Mg Tablet.Dr) 81 mg PO DAILY [facility] Last Admin: 05/07/22 08:45 Dose: 81 mg Atorvastatin Calcium (Atorvastatin Calcium 80 Mg Tablet) 80 mg PO DAILY [facility] Last Admin: 05/07/22 08:45 Dose: 80 mg Docusate Sodium (Docusate Sodium 100 Mg Capsule) 100 mg PO DAILY PRN PRN Reason: Constipation Ondansetron HCl (Ondansetron Hcl 4 Mg/2 Ml Vial) 4 mg IVPUSH Q8H PRN PRN Reason: Nausea and Vomiting Oseltamivir Phosphate (Oseltamivir Phosphate 75 Mg Capsule) 75 mg PO Q12H [facility] Stop: 05/11/22 11:01 Last Admin: 05/07/22 00:03 Dose: 75 mg Pharmacy Consult (Consult Rx Perform Med Rec) 1 each MISCELLANE ONCE PRN PRN Reason: Consult order Home Medications Medication Instructions Recorded Confirmed Last Taken Type fluticasone propionate 50 2 spray intranasal DAILY 05/06/22 05/06/22 Unknown History mcg/actuation nasal spray,suspension Physical Exam Vital Signs: Vital Signs: Last Vital Signs Temp 97.9 F 05/07/22 07:09 Pulse 77 05/07/22 08:30 Resp 16 05/07/22 07:09 BP 126/70 05/07/22 08:30 Pulse Ox 96 05/07/22 08:30 O2 Del Method 05/07/22 07:09 O2 Flow Rate 2 05/07/22 07:09 Oxygen Flow Rate 2 05/06/22 15:24 BMI result Body Mass Index 24.9 Const: General: cooperative and no acute distress Orientation/consciousness: patient oriented x3 HEENT: Other: slightly hard of hearing Eyes: General: appearance normal, both eyes and all related structures Resp: Effort & Inspection: normal respiratory effort Auscultation: clear to auscultation bilaterally Cardio: Rate: regular rate Rhythm: regular rhythm GI: Palpation (GI): Soft to palpation Auscultation: normal bowel sounds Skin: General skin exam: no rashes or lesions noted Neuro: Other: Non focal exam with no neurological deficits, strength his 5/5 in upper extremities,. Mild chronic leg weakness. General: patient oriented x3 Cognition (Neuro): normal cognition Extrem: General: Yes normal to inspection and Yes no pedal edema Results Labs CBC & Chem 7: 05/07/22 05:46 05/07/22 05:46 Labs: Short CBC 05/06/22 05/07/22 Range/Units 16:03 05:46 WBC 8.0 6.0 (4.8-10.8) X10*3/uL Hgb 14.7 13.4 (12.0-16.0) g/dl Hct 44.5 41.6 (37.0-47.0) % Plt Count 237 193 (160-400) X10*3/uL BMP 05/06/22 05/07/22 16:32 05:46 Sodium 134 L 136 Potassium 3.9 3.9 Chloride 101 106 Carbon Dioxide 25 22 BUN 19 H 18 H Creatinine 0.78 0.71 Calcium 8.5 7.6 L D Liver Function 05/06/22 Range/Units 16:32 Total Bilirubin 0.6 (0.0-1.0) mg/dL Direct Bilirubin 0.2 (0.0-0.5) mg/dL AST 20 (5-31) U/L ALT 23 (0-31) U/L Alkaline Phosphatase 58 (39-117) U/L Albumin 3.9 (3.5-5.0) g/dL Urine 05/06/22 Range/Units 20:55 Urine Color Yellow Urine Appearance Clear Urine pH 5.5 (5.0-9.0) Ur Specific [place] 1.020 (1.005-1.025) Urine Protein Trace (Neg-Trace) mg/dL Urine Glucose (UA) Negative (Negative) mg/dL Assessment and Plan (1) CVA (cerebral vascular accident): Status: Acute The punctate microvascular left centrum semiovale subacute infarct is an incidental finding related to her chronic microvascular disease and is unrelated to the dizziness and vomiting and weakness which is probably part of her flu. Recom.; Kepp BP normal, ASA 81mg qd (2) Vertigo: Status: Acute Treat symptomatically with Meclizine (3) Influenza A: Status: Acute Plan this is an 82-year-old female with past medical history of COPD, chronic respiratory failure on 2L supplemental O2 at baseline, as well as remote history of breast cancer presents to the hospital with complaints of vomiting, as well as dizziness found to have acute influenza infection as well as subacute infarct #? CVA- punctate 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 No acute infarct or hemorrhage on MRI -? no history of underlying? arrhythmias that are known -? patient denies any underlying risk factors -? Continue asa 325mg - Carotid doppler negative for any hemodynamically significant stenosis - echocardiogram pending -? neurology consulted -? PT OT- recommending STR/acute - Continue telemetry #? vertigo -? likely secondary to above -? PT OT consulted #? influenza a infection -? no acute respiratory failure, patient uses 2 L of oxygen at baseline -? will start? her on Tamiflu #?COPD- No exacerbation -?Scatterered expiratory wheezing - Duonebs - Hold on any steroids for now as patient has no complaints -?continue home inhaler ?DVT prophylaxis:? Early ambulation, compression ?given patient's? new CVA, patient require minimum 2 night inpatient hospital stay further evaluation and monitoring Time Spent With Patient Time: Total time managing care of this patient today ____ minutes. Procedures Date of Service Date of Service: 05/07/22
--- NOTE | 2022-05-07 14:01 | MHC.CM.PN ---
IMM 05/07/22 Female 82 DX CVA Flu Vertigo PT lives in the [facility]. They are assisting with housing placement per patient. Prior to admit she used a cane. She was independent with [facility]LS. She moved here from [place] 1+1/2 years ago. She does not have a HCP. T/W offered to document a HCP for the patient. She stated that her granddaughter in [place] was her HCP. She does not have contact info for her granddaughter. Patient reports that she received the Moderna vaccine x 4. Referrals for rehab have been sent to the Acute facilities and the STR facilities. Patient will transport via S.
[2022-05-07] MEDS: Albuterol/Iprat 2.5/0.5MG 3 ML AMPUL.NEB INHALE ×2 (14:43→20:37)
[2022-05-07] MEDS: Acetaminophen 325 MG TABLET 650 MG PO (20:20)
[2022-05-08] VITALS (11 sets, daily range): BP systolic 92–127; BP diastolic 54–80; PULSE 57–85; RESP 16–20; TEMP 36.3–37.1; O2SAT 94–97
--- NOTE | 2022-05-08 05:52 | PC.NURSE ---
Pts manual BP was 92/[address] Dr Lux aware.
[2022-05-08] MEDS: Albuterol/Iprat 2.5/0.5MG 3 ML AMPUL.NEB INHALE ×3 (07:54→20:23)
[2022-05-08] MEDS: Aspirin Enteric Coated 81 MG TABLET.DR PO (08:19)
[2022-05-08] MEDS: Atorvastatin Calcium 80 MG TABLET PO (08:19)
--- NOTE | 2022-05-08 10:53 | P.PNIM_ITS ---
Subjective Subjective Date of Service: 05/08/22 Interval History: cc: n/v interval history:tremulous Cardiovascular Cardiovascular: Reports no additional cardiovascular complaints Respiratory Respiratory: Reports no additional respiratory complaints Physical Exam Vital Signs: Vital Signs: Last Vital Signs Temp 98.2 F 05/08/22 07:38 Pulse 72 05/08/22 10:13 Resp 18 05/08/22 07:54 BP 121/62 05/08/22 07:38 Pulse Ox 97 05/08/22 07:38 O2 Del Method 05/08/22 07:38 O2 Flow Rate 2.5 05/08/22 07:38 Oxygen Flow Rate 2 05/06/22 15:24 BMI result Body Mass Index 24.9 General: AO X 3, no acute distress Resp: CTA bilateral, no accessory muscles used CVS: S1,S2,RRR GI: soft, non tender, non distended Neuro: motor grossly intact, alert, tremulous Psych: appropriate affect, appropriate insight Const: General: cooperative and no acute distress Orientation/consciousness: patient oriented x3 HEENT: Other: slightly hard of hearing Eyes: General: appearance normal, both eyes and all related structures Resp: Effort & Inspection: normal respiratory effort Auscultation: clear to auscultation bilaterally Cardio: Rate: regular rate Rhythm: regular rhythm GI: Palpation (GI): Soft to palpation Auscultation: normal bowel sounds Skin: General skin exam: no rashes or lesions noted Neuro: Other: Non focal exam with no neurological deficits, strength his 5/5 in upper extremities,. Mild chronic leg weakness. General: patient oriented x3 Cogn ition (Neuro): normal cognition Extrem: General: Yes normal to inspection and Yes no pedal edema Objective Data Active Medications Acetaminophen (Acetaminophen 325 Mg Tablet) 650 mg PO Q6H PRN PRN Reason: Pain, Mild (Pain Scale 1-3) Last Admin: 05/07/22 20:20 Dose: 650 mg Documented By: YOANA Albuterol/Ipratropium (Albuterol/Iprat 2.5/0.5mg 3 Ml Ampul.Neb) 3 ml INHALE RQ6H WHILE AWAKE [facility] Last Admin: 05/08/22 07:54 Dose: 3 ml Documented By: VANESA Aspirin (Aspirin Enteric Coated 81 Mg Tablet.) 81 mg PO DAILY [facility] Last Admin: 05/08/22 08:19 Dose: 81 mg Documented By: ROSY Atorvastatin Calcium (Atorvastatin Calcium 80 Mg Tablet) 80 mg PO DAILY [facility] Last Admin: 05/08/22 08:19 Dose: 80 mg Documented By: ROSY Docusate Sodium (Docusate Sodium 100 Mg Capsule) 100 mg PO DAILY PRN PRN Reason: Constipation Fluticasone Propionate (Fluticasone Propionate Nasal 16 Gm [place]) 2 spray NOSTRIL-B DAILY [facility] Last Admin: 05/08/22 08:20 Dose: Not Given Documented By: ROSY Non-Admin Reason: Patient Refused Ondansetron HCl (Ondansetron Hcl 4 Mg/2 Ml Vial) 4 mg IVPUSH Q8H PRN PRN Reason: Nausea and Vomiting Oseltamivir Phosphate (Oseltamivir Phosphate 75 Mg Capsule) 75 mg PO Q12H [facility] Stop: 05/11/22 11:01 Last Admin: 05/07/22 23:19 Dose: 75 mg Documented By: YOANA Pharmacy Consult (Consult Rx Perform Med Rec) 1 each MISCELLANE ONCE PRN PRN Reason: Consult order Labs CBC & Chem 7: 05/07/22 05:46 05/07/22 05:46 Assessment and Plan (1) CVA (cerebral vascular accident): Status: Acute (2) Vertigo: Status: Acute (3) Influenza A: Status: Acute Plan this is an 82-year-old female with past medical history of COPD, chronic re spiratory failure on 2L supplemental O2 at baseline, as well as remote history of breast cancer presents to the hospital with complaints of vomiting, as well as dizziness found to have acute influenza infection as well as subacute infarct CVA- punctate 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 No acute infarct or hemorrhage on MRI neuro appreciated - felt to be incidental and noncontributory to symptoms -? no history of underlying? arrhythmias that are known -? patient denies any underlying risk factors -? Continue asa 81mg, statin -? PT OT- recommending STR/acute - Continue telemetry vertigo meclizine prn influenza a infection -? no acute respiratory failure, patient uses 2 L of oxygen at baseline -? Continue Tamiflu COPD- No exacerbation -?Scatterered expiratory wheezing - Duonebs - Hold on any steroids for now as patient has no complaints -?continue home inhaler ?DVT prophylaxis:? lovenox full code reason for continued hospitalization: still very dizzy, feeling unwell Time Spent With Patient Time: Total time managing care of this patient today ____ minutes. Quality Stroke Does the patient have a stroke diagnosis?: No VTE Prior VTE?: No VTE Risk Level:: Medical - low VTE Device Contraindication: N/A - Device Ordered VTE Drug Contraindication: Treatment Not Indicated
[2022-05-08] MEDS: Oseltamivir Phosphate 75 MG CAPSULE PO ×2 (12:51→23:39)
[2022-05-08] MEDS: Enoxaparin Sodium 40 MG/0.4 ML SYRINGE SUBCUT (12:51)
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
[2022-05-08] MEDS: ondansetron HCL 4 MG/2 ML VIAL IVPUSH (23:37)
[2022-05-08] MEDS: Docusate Sodium 100 MG CAPSULE PO (23:39)
[2022-05-09] VITALS (9 sets, daily range): BP systolic 124–147; BP diastolic 74–88; PULSE 67–91; RESP 16–20; TEMP 36.2–36.7; O2SAT 97–98
[2022-05-09 06:50] LABS: Hemoglobin 13.5 g/dl (12.0-16.0); Mean Corpuscular HGB Conc 32.1 g/dl (31.0-35.0); Mean Corpuscular Hemoglobin 26.9 pg (27.0-33.0); Mean Corpuscular Volume 83.8 fL (80.0-98.0); Mean Platelet Volume 9.5 fL (9.4-12.3); Platelet Count 209 X10*3/uL (160-400); Red Blood Count 5.01 X10*6/uL (4.20-5.50); Red Cell Distribution Width 14.2 % (11.0-16.0); White Blood Count 4.2 X10*3/uL (4.8-10.8)
[2022-05-09 07:16] LABS: Anion Gap 10 (12-20); Blood Urea Nitrogen 10 mg/dL (9-16); Carbon Dioxide 27 mmol/L (22-29); Chloride 104 mmol/L (96-108); Creatinine Clr Calc Pharmacy 60.2; Estimated Glomerular Filt Rate > 60; Glucose Fasting 98 mg/dL (60-99); Potassium 4.1 mmol/L (3.3-5.1); Sodium 137 mmol/L (135-145)
[2022-05-09] MEDS: Aspirin Enteric Coated 81 MG TABLET.DR PO (07:30)
[2022-05-09] MEDS: Meclizine HCl 12.5 MG TABLET PO (07:31)
[2022-05-09] MEDS: Docusate Sodium 100 MG CAPSULE PO (07:31)
[2022-05-09] MEDS: Atorvastatin Calcium 80 MG TABLET PO (07:32)
[2022-05-09] MEDS: Albuterol/Iprat 2.5/0.5MG 3 ML AMPUL.NEB INHALE ×3 (09:34→19:52)
[2022-05-09] MEDS: Oseltamivir Phosphate 75 MG CAPSULE PO ×2 (11:04→23:53)
[2022-05-09] MEDS: Enoxaparin Sodium 40 MG/0.4 ML SYRINGE SUBCUT (11:04)
--- NOTE | 2022-05-09 13:56 | HO.PM.IMPN ---
Subjective Subjective Date of Service: 05/09/22 Interval History: seen and examined this morning follow up for dizziness, influenza reporting ongoing constipation, dizziness with movement, nausea feels sick no sob Review of Systems Review of Systems: Yes all other systems are reviewed and are negative Constitutional Constitutional: Denies chills and Denies fever(s) ENT Ears, Nose, Mouth, and Throat: Reports dizziness Cardiovascular Cardiovascular: Denies chest pain and Denies palpitations Respiratory Respiratory: Reports cough Gastrointestinal Gastrointestinal: Reports nausea and Denies vomiting Neurologic Neurologic: Reports dizziness Endocrine Endocrine: Denies palpitations Physical Exam Vital Signs: Vital Signs: Last Vital Signs Temp 97.1 F 05/09/22 11:21 Pulse 91 05/09/22 11:21 Resp 17 05/09/22 11:21 BP 141/76 H 05/09/22 11:21 Pulse Ox 97 05/09/22 11:21 O2 Del Method 05/09/22 11:21 O2 Flow Rate 2 05/09/22 11:21 Oxygen Flow Rate 2 05/06/22 15:24 BMI result Body Mass Index 24.9 Const: General: alert and awake Nutritional Appearance: average body habitus Resp: Effort & Inspection: normal respiratory effort Auscultation: clear to auscultation bilaterally GI: Inspection: No distended Palpation (GI): Soft to palpation Neuro: Other: grossly nonfocal Objective Data Active Medications Acetaminophen (Acetaminophen 325 Mg Tablet) 650 mg PO Q6H PRN PRN Reason: Pain, Mild (Pain Scale 1-3) Last Admin: 05/07/22 20:20 Dose: 650 mg Documented By: YOANA Albuterol/Ipratropium (Albuterol/Iprat 2.5/0.5mg 3 Ml Ampul.Neb) 3 ml INHALE RQ6H WHILE AWAKE [facility] Last Admin: 05/09/22 09:34 Dose: 3 ml Documented By: ELIZABETH Aspirin (Aspirin Enteric Coated 81 Mg Tablet.) 81 mg PO DAILY [facility] Last Admin: 05/09/22 07:30 Dose: 81 mg Documented By: MARCOS Atorvastatin Calcium (Atorvastatin Calcium 80 Mg Tablet) 80 mg PO DAILY [facility] Last Admin: 05/09/22 07:32 Dose: 80 mg Documented By: MARCOS Docusate Sodium (Docusate Sodium 100 Mg Capsule) 100 mg PO DAILY PRN PRN Reason: Constipation Last Admin: 05/09/22 07:31 Dose: 100 mg Documented By: MARCOS Enoxaparin Sodium (Enoxaparin Sodium 40 Mg/0.4 Ml Syringe) 40 mg SUBCUT Q24H [facility] Last Admin: 05/09/22 11:04 Dose: 40 mg Documented By: MARCOS Fluticasone Propionate (Fluticasone Propionate Nasal 16 Gm [place]) 2 spray NOSTRIL-B DAILY [facility] Last Admin: 05/09/22 08:22 Dose: Not Given Documented By: MARCOS Non-Admin Reason: Patient Refused Meclizine HCl (Meclizine Hcl 12.5 Mg Tablet) 12.5 mg PO Q8H PRN PRN Reason: vertigo Last Admin: 05/09/22 07:31 Dose: 12.5 mg Documented By: MARCOS Ondansetron HCl (Ondansetron Hcl 4 Mg/2 Ml Vial) 4 mg IVPUSH Q8H PRN PRN Reason: Nausea and Vomiting Last Admin: 05/08/22 23:37 Dose: 4 mg Documented By: HUE Oseltamivir Phosphate (Oseltamivir Phosphate 75 Mg Capsule) 75 mg PO Q12H [facility] Stop: 05/11/22 11:01 Last Admin: 05/09/22 11:04 Dose: 75 mg Documented By: MARCOS Pharmacy Consult (Consult Rx Perform Med Rec) 1 each MISCELLANE ONCE PRN PRN Reason: Consult order Labs CBC & Chem 7: 05/09/22 06:24 05/09/22 06:24 Labs: Laboratory Results - last 24 hr 05/09/22 05/09/22 06:24 06:24 MCV 83.8 MCH 26.9 L MCHC 32.1 RDW 14.2 Plt Count 209 MPV 9.5 Absolute Nucleated RBC 0.000 Nucleated RBC % (auto) 0.0 Anion Gap 10 L Estim Creat Clear Calc 60.2 Estimated GFR > 60 Fasting Glucose 98 Calcium 8.0 L Assessment and Plan (1) Vertigo: Status: Acute (2) Influenza A: Status: Acute Plan this is an 82-year-old female with past medical history of COPD, chronic respiratory failure on 2L supplemental O2 at baseline, as well as remote history of breast cancer presents to the hospital with complaints of vomiting, as well as dizziness found to have acute influenza infection as well as subacute infarct CVA- punctate 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 No acute infarct or hemorrhage on MRI neuro appreciated - felt to be incidental and noncontributory to symptoms no history of underlying?arrhythmias that are known -?Continue asa 81mg, statin -?PT OT- recommending STR - Continue telemetry vertigo meclizine prn influenza a infection previously documented that patient uses 2 L of oxygen at baseline, but patient denies using at home -? Continue Tamiflu COPD- No exacerbation -?Scatterered expiratory wheezing - Duonebs - Hold on any steroids for now as patient has no complaints -?continue home inhaler DVT prophylaxis:? lovenox full code reason for continued hospitalization: still very dizzy, feeling unwell dispo - PT rec STR attending - dr. freeman Time Spent With Patient Time: Total time managing care of this patient today ____ minutes. Quality Stroke Does the patient have a stroke diagnosis?: No VTE Prior VTE?: No VTE Risk Level:: Medical - low VTE Device Contraindication: N/A - Device Ordered VTE Drug Contraindication: Treatment Not Indicated
[2022-05-09] MEDS: polyethylene glycoL 3350 17 GM POWD.PACK PO (14:25)
[2022-05-10] VITALS (8 sets, daily range): BP systolic 129–150; BP diastolic 76–99; PULSE 70–93; RESP 18–93; TEMP 36.3–37; O2SAT 91–97
[2022-05-10] MEDS: Albuterol/Iprat 2.5/0.5MG 3 ML AMPUL.NEB INHALE ×2 (07:43→14:40)
[2022-05-10] MEDS: Aspirin Enteric Coated 81 MG TABLET.DR PO (08:14)
[2022-05-10] MEDS: Atorvastatin Calcium 80 MG TABLET PO (08:14)
[2022-05-10] MEDS: Oseltamivir Phosphate 75 MG CAPSULE PO (11:19)
[2022-05-10] MEDS: Enoxaparin Sodium 40 MG/0.4 ML SYRINGE SUBCUT (11:20)
[2022-05-10] MEDS: Sodium Phosphate,Mono-Dibasic 133 ML ENEMA PR (12:09)
--- NOTE | 2022-05-10 12:38 | HO.PM.IMPN ---
Subjective Subjective Date of Service: 05/10/22 Interval History: seen and examined this morning follow up for flu, dizziness feels better this morning, still with some dizziness with movement, but improving. no nausea still no BM, denies abdominal pain breathing better Review of Systems Review of Systems: Yes all other systems are reviewed and are negative Constitutional Constitutional: Denies chills and Denies fever(s) ENT Ears, Nose, Mouth, and Throat: Reports dizziness Cardiovascular Cardiovascular: Denies chest pain, Denies palpitations and Denies dyspnea Respiratory Respiratory: Denies cough and Denies dyspnea Gastrointestinal Gastrointestinal: Denies abdominal pain, Denies nausea and Denies vomiting Neurologic Neurologic: Reports dizziness Endocrine Endocrine: Denies palpitations Physical Exam Vital Signs: Vital Signs: Last Vital Signs Temp 98.6 F 05/10/22 07:32 Pulse 77 05/10/22 07:46 Resp 18 05/10/22 07:46 BP 136/76 05/10/22 07:32 Pulse Ox 96 05/10/22 07:32 O2 Del Method 05/10/22 07:32 O2 Flow Rate 2 05/10/22 03:36 Oxygen Flow Rate 2 05/06/22 15:24 BMI result Body Mass Index 24.9 Const: General: cooperative, comfortable, alert and awake Nutritional Appearance: average body habitus Orientation/consciousness: patient oriented x3 Resp: Effort & Inspection: normal respiratory effort and able to speak in complete sentences Cardio: Rate: regular rate Heart sounds: S1 normal heart sound present and S2 normal heart sound present GI: Inspection: No distended Palpation (GI): Soft to palpation and nontender Neuro: Other: no focal neuro deficits General: patient oriented x3 Extrem: General: Yes no pedal edema Objective Data Active Medications Acetaminophen (Acetaminophen 325 Mg Tablet) 650 mg PO Q6H PRN PRN Reason: Pain, Mild (Pain Scale 1-3) Last Admin: 05/07/22 20:20 Dose: 650 mg Documented By: YOANA Albuterol/Ipratropium (Albuterol/Iprat 2.5/0.5mg 3 Ml Ampul.Neb) 3 ml INHALE RQ6H WHILE AWAKE [facility] Last Admin: 05/10/22 07:43 Dose: 3 ml Documented By: LIBRADO Aspirin (Aspirin Enteric Coated 81 Mg Tablet.) 81 mg PO DAILY [facility] Last Admin: 05/10/22 08:14 Dose: 81 mg Documented By: AZRA Atorvastatin Calcium (Atorvastatin Calcium 80 Mg Tablet) 80 mg PO DAILY [facility] Last Admin: 05/10/22 08:14 Dose: 80 mg Documented By: AZRA Docusate Sodium (Docusate Sodium 100 Mg Capsule) 100 mg PO DAILY PRN PRN Reason: Constipation Last Admin: 05/09/22 07:31 Dose: 100 mg Documented By: MARCOS Enoxaparin Sodium (Enoxaparin Sodium 40 Mg/0.4 Ml Syringe) 40 mg SUBCUT Q24H [facility] Last Admin: 05/10/22 11:20 Dose: 40 mg Documented By: AZRA Fluticasone Propionate (Fluticasone Propionate Nasal 16 Gm [place]) 2 spray NOSTRIL-B DAILY [facility] Last Admin: 05/10/22 08:18 Dose: Not Given Documented By: AZRA Non-Admin Reason: Patient Refused Meclizine HCl (Meclizine Hcl 12.5 Mg Tablet) 12.5 mg PO Q8H PRN PRN Reason: vertigo Last Admin: 05/09/22 07:31 Dose: 12.5 mg Documented By: MARCOS Ondansetron HCl (Ondansetron Hcl 4 Mg/2 Ml Vial) 4 mg IVPUSH Q8H PRN PRN Reason: Nausea and Vomiting Last Admin: 05/08/22 23:37 Dose: 4 mg Documented By: HUE Oseltamivir Phosphate (Oseltamivir Phosphate 75 Mg Capsule) 75 mg PO Q12H [facility] Stop: 05/11/22 11:01 Last Admin: 05/10/22 11:19 Dose: 75 mg Documented By: AZRA Pharmacy Consult (Consult Rx Perform Med Rec) 1 each MISCELLANE ONCE PRN PRN Reason: Consult order Polyethylene Glycol (Polyethylene Glycol 3350 17 Gm Powd.Pack) 17 gm PO DAILY PRN PRN Reason: constipation Last Admin: 05/09/22 14:25 Dose: 17 gm Documented By: MARCOS Labs CBC & Chem 7: 05/09/22 06:24 05/09/22 06:24 Assessment and Plan (1) Vertigo: Status: Acute (2) Influenza A: Status: Acute Plan this is an 82-year-old female with past medical history of COPD, chronic respiratory failure on 2L supplemental O2 at baseline, as well as remote history of breast cancer presents to the hospital with complaints of vomiting, as well as dizziness found to have acute influenza infection as well as subacute infarct CVA- punctate 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 No acute infarct or hemorrhage on MRI neuro appreciated - felt to be incidental and noncontributory to symptoms -?Continue asa 81mg, statin -?PT OT- recommending STR - Continue telemetry vertigo meclizine prn influenza a infection previously documented that patient uses 2 L of oxygen at baseline, but patient denies using at home -? Continue Tamiflu COPD- No exacerbation prn breathing treatments -?continue home inhaler DVT prophylaxis:? lovenox full code reason for continued hospitalization:safe disposition dispo - PT rec STR attending - dr. freeman Time Spent With Patient Time: Total time managing care of this patient today ____ minutes. Quality Stroke Does the patient have a stroke diagnosis?: No VTE Prior VTE?: No VTE Risk Level:: Medical - low VTE Device Contraindication: N/A - Device Ordered VTE Drug Contraindication: Treatment Not Indicated
--- NOTE | 2022-05-10 13:24 | MHC.CM.PN ---
Patient is medically cleared for dc; CM continues to work with area SNFs to secure a STR bed for Patient and then to obtain [employer] Authorization. CM will follow.
[2022-05-11] MEDS: Oseltamivir Phosphate 75 MG CAPSULE PO ×2 (00:04→10:58)
[2022-05-11] MEDS: ondansetron HCL 4 MG/2 ML VIAL IVPUSH (02:22)
[2022-05-11 08:00] VITALS: BP 170/72; PULSE 89; RESP 12; TEMP 36.3; O2SAT 90
[2022-05-11] MEDS: Albuterol/Iprat 2.5/0.5MG 3 ML AMPUL.NEB INHALE (08:04)
[2022-05-11 08:05] VITALS: PULSE 94; RESP 18; O2SAT 95
[2022-05-11] MEDS: polyethylene glycoL 3350 17 GM POWD.PACK PO (08:34)
[2022-05-11] MEDS: Docusate Sodium 100 MG CAPSULE PO (08:34)
[2022-05-11] MEDS: Aspirin Enteric Coated 81 MG TABLET.DR PO (08:34)
[2022-05-11] MEDS: Atorvastatin Calcium 80 MG TABLET PO (08:34)
[2022-05-11] MEDS: Enoxaparin Sodium 40 MG/0.4 ML SYRINGE SUBCUT (10:57)
[2022-05-11 11:57] VITALS: BP 155/95; PULSE 91; RESP 12; TEMP 36.7; O2SAT 90
--- NOTE | 2022-05-11 13:18 | P.PNIM_ITS ---
Subjective Subjective Date of Service: 05/11/22 Interval History: seen and examined this morning follow up for dizziness, flu having some nausea/vomiting. no abdominal pain had BM yesterday. no abdominal pain intermittent dizziness Review of Systems Review of Systems: Yes all other systems are reviewed and are negative Constitutional Constitutional: Denies chills and Denies fever(s) ENT Ears, Nose, Mouth, and Throat: Reports dizziness Cardiovascular Cardiovascular: Denies chest pain, Denies palpitations and Denies dyspnea Respiratory Respiratory: Denies cough and Denies dyspnea Gastrointestinal Gastrointestinal: Denies abdominal pain, Denies diarrhea, Denies nausea and Philipp es vomiting Neurologic Neurologic: Reports dizziness Endocrine Endocrine: Denies palpitations Physical Exam Vital Signs: Vital Signs: Last Vital Signs Temp 98.0 F 05/11/22 11:57 Pulse 91 05/11/22 11:57 Resp 12 05/11/22 11:57 BP 155/95 H 05/11/22 11:57 Pulse Ox 90 L 05/11/22 11:57 O2 Del Method 05/11/22 11:57 O2 Flow Rate 2 05/10/22 12:00 Oxygen Flow Rate 2 05/06/22 15:24 BMI result Body Mass Index 24.9 Const: General: cooperative, comfortable, alert and awake Nutritional Appearance: average body habitus Orientation/consciousness: patient oriented x3 HEENT: Other: hard of hearing Resp: Effort & Inspection: normal respiratory effort and able to speak in complete sentences Auscultation: clear to auscultation bilaterally Cardio: Rate: regular rate Heart sounds: S1 normal heart sound present and S2 normal heart sound present GI: Inspection: No distended Palpation (GI): Soft to palpation and nontender Neuro: Other: no focal neuro deficits General: patient oriented x3 Extrem: General: Yes no pedal edema Objective Data Active Medications Acetaminophen (Acetaminophen 325 Mg Tablet) 650 mg PO Q6H PRN PRN Reason: Pain, Mild (Pain Scale 1-3) Last Admin: 05/07/22 20:20 Dose: 650 mg Documented By: YOANA Albuterol/Ipratropium (Albuterol/Iprat 2.5/0.5mg 3 Ml Ampul.Neb) 3 ml INHALE RQ6H WHILE AWAKE [facility] Last Admin: 05/11/22 08:04 Dose: 3 ml Documented By: MESSI Aspirin (Aspirin Enteric Coated 81 Mg Tablet.) 81 mg PO DAILY [facility] Last Admin: 05/11/22 08:34 Dose: 81 mg Documented By: OSVALDO-SOFSAVAGE Atorvastatin Calcium (Atorvastatin Calcium 80 Mg Tablet) 80 mg PO DAILY [facility] Last Admin: 05/11/22 08:34 Dose: 80 mg Documented By: OVSALDO-SOFFA Docusate Sodium (Docusate Sodium 100 Mg Capsule) 100 mg PO DAILY [facility] Last Admin: 05/11/22 08:34 Dose: 100 mg Documented By: OSVALDO-CHARLESFA Enoxaparin Sodium (Enoxaparin Sodium 40 Mg/0.4 Ml Syringe) 40 mg SUBCUT Q24H [facility] Last Admin: 05/11/22 10:57 Dose: 40 mg Documented By: OSVALDO-CHARLESFA Fluticasone Propionate (Fluticasone Propionate Nasal 16 Gm [place]) 2 spray NOSTRIL-B DAILY [facility] Last Admin: 05/11/22 08:34 Dose: Not Given Documented By: OSVALDO-JATIN Non-Admin Reason: Patient Refused Meclizine HCl (Meclizine Hcl 12.5 Mg Tablet) 12.5 mg PO Q8H PRN PRN Reason: vertigo Last Admin: 05/09/22 07:31 Dose: 12.5 mg Documented By: MARCOS Ondansetron HCl (Ondansetron Hcl 4 Mg/2 Ml Vial) 4 mg IVPUSH Q8H PRN PRN Reason: Nausea and Vomiting Last Admin: 05/11/22 02:22 Dose: 4 mg Documented By: CABRERA Pharmacy Consult (Consult Rx Perform Med Rec) 1 each MISCELLANE ONCE PRN PRN Reason: Consult order Polyethylene Glycol (Polyethylene Glycol 3350 17 Gm Powd.Pack) 17 gm PO DAILY [facility] Last Admin: 05/11/22 08:34 Dose: 17 gm Documented By: AZRA Labs CBC & Chem 7: 05/09/22 06:24 05/09/22 06:24 Assessment and Plan (1) Influenza A: Status: Acute (2) Vertigo: Status: Acute Plan this is an 82-year-old female with past medical history of COPD, chronic respiratory failure on 2L supplemental O2 at baseline, as well as remote history of breast cancer presents to the hospital with complaints of vomiting, as well as dizziness found to have acute influenza infection as well as subacute infarct CVA- punctate 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 No acute infarct or hemorrhage on MRI neuro appreciated - felt to be incidental and noncontributory to symptoms Continue asa 81mg, statin PT - recommending STR vertigo meclizine prn influenza a infection previously documented that patient uses 2 L of oxygen at baseline, but patient denies using at home completed course of Tamiflu change breathing treatments to prn from scheduled on room air COPD- No exacerbation prn breathing treatments continue home inhaler DVT prophylaxis:? lovenox full code reason for continued hospitalization:safe disposition dispo - PT rec STR, bed search ongoing, requires ins authorizaition attending - dr. yoon Time Spent With Patient Time: Total time managing care of this patient today ____ minutes. Quality Stroke Does the patient have a stroke diagnosis?: No VTE Prior VTE?: No VTE Risk Level:: Medical - low VTE Device Contraindication: N/A - Device Ordered VTE Drug Contraindication: Treatment Not Indicated
[2022-05-11 15:54] VITALS: BP 148/96; PULSE 88; RESP 19; TEMP 36.2; O2SAT 93
[2022-05-11 20:00] VITALS: BP 150/90; PULSE 100; RESP 19; TEMP 36.5; O2SAT 90
[2022-05-12] VITALS (7 sets, daily range): BP systolic 113–144; BP diastolic 77–91; PULSE 69–89; RESP 16–19; TEMP 36–36.9; O2SAT 90–96
--- NOTE | 2022-05-12 08:36 | HO.PM.IMPN ---
Subjective Subjective Date of Service: 05/12/22 Interval History: seen and examined this morning follow up for dizziness, flu no more nausea/vomiting. no abdominal pain Intermittent dizziness, none right now Physical Exam Vital Signs: Vital Signs: Last Vital Signs Temp 98.0 F 05/12/22 07:37 Pulse 69 05/12/22 07:37 Resp 16 05/12/22 07:37 BP 141/87 H 05/12/22 07:37 Pulse Ox 92 05/12/22 07:37 O2 Del Method 05/12/22 07:37 O2 Flow Rate 2 05/10/22 12:00 Oxygen Flow Rate 2 05/06/22 15:24 BMI result Body Mass Index 24.9 Const: General: cooperative, comfortable, no acute distress, alert and awake Resp: Effort & Inspection: normal respiratory effort and able to speak in complete sentences Auscultation: clear to auscultation bilaterally Cardio: Rate: regular rate Rhythm: regular rhythm Heart sounds: S1 normal heart sound present and S2 normal heart sound present GI: Inspection: No distended Palpation (GI): Soft to palpation and nontender Auscultation: normal bowel sounds Skin: General skin exam: no rashes or lesions noted Neuro: Other: no focal neuro deficits Cognition (Neuro): normal cognition Extrem: General: Yes normal to inspection and Yes no pedal edema Objective Data Active Medications Acetaminophen (Acetaminophen 325 Mg Tablet) 650 mg PO Q6H PRN PRN Reason: Pain, Mild (Pain Scale 1-3) Last Admin: 05/07/22 20:20 Dose: 650 mg Documented By: YOANA Albuterol/Ipratropium (Albuterol/Iprat 2.5/0.5mg 3 Ml Ampul.Neb) 3 ml INHALE RQ6H WHILE AWAKE PRN PRN Reason: shortness of breath/wheezing Aspirin (Aspirin Enteric Coated 81 Mg Tablet.) 81 mg PO DAILY [facility] Last Admin: 05/11/22 08:34 Dose: 81 mg Documented By: AZRA Atorvastatin Calcium (Atorvastatin Calcium 80 Mg Tablet) 80 mg PO DAILY [facility] Last Admin: 05/11/22 08:34 Dose: 80 mg Documented By: AZRA Docusate Sodium (Docusate Sodium 100 Mg Capsule) 100 mg PO DAILY [facility] Last Admin: 05/11/22 08:34 Dose: 100 mg Documented By: AZRA Enoxaparin Sodium (Enoxaparin Sodium 40 Mg/0.4 Ml Syringe) 40 mg SUBCUT Q24H [facility] Last Admin: 05/11/22 10:57 Dose: 40 mg Documented By: AZRA Fluticasone Propionate (Fluticasone Propionate Nasal 16 Gm [place]) 2 spray NOSTRIL-B DAILY [facility] Last Admin: 05/11/22 08:34 Dose: Not Given Documented By: AZRA Non-Admin Reason: Patient Refused Meclizine HCl (Meclizine Hcl 12.5 Mg Tablet) 12.5 mg PO Q8H PRN PRN Reason: vertigo Last Admin: 05/09/22 07:31 Dose: 12.5 mg Documented By: MARCOS Ondansetron HCl (Ondansetron Hcl 4 Mg/2 Ml Vial) 4 mg IVPUSH Q8H PRN PRN Reason: Nausea and Vomiting Last Admin: 05/11/22 02:22 Dose: 4 mg Documented By: CABRERA Pharmacy Consult (Consult Rx Perform Med Rec) 1 each MISCELLANE ONCE PRN PRN Reason: Consult order Polyethylene Glycol (Polyethylene Glycol 3350 17 Gm Powd.Pack) 17 gm PO DAILY [facility] Last Admin: 05/11/22 08:34 Dose: 17 gm Documented By: AZRA Labs CBC & Chem 7: 05/09/22 06:24 05/09/22 06:24 Assessment and Plan (1) Vertigo: Status: Acute (2) Influenza A: Status: Acute Plan this is an 82-year-old female with past medical history of COPD, chronic respiratory failure on 2L supplemental O2 at baseline, as well as remote history of breast cancer presents to the hospital with complaints of vomiting, as well as dizziness found to have acute influenza infection as well as subacute infarct ?CVA- CT punctate 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 No acute infarct or hemorrhage on MRI neuro appreciated - felt to be incidental and noncontributory to symptoms and therefore CVA ruled out Continue asa 81mg, statin PT - recommending STR vertigo meclizine prn influenza a infection previously documented that patient uses 2 L of oxygen at baseline, but patient denies using at home completed course of Tamiflu PRN breathing treatment 92% on room air COPD- No exacerbation prn breathing treatments continue home inhaler DVT prophylaxis:? lovenox full code reason for continued hospitalization:safe disposition dispo - PT rec STR, bed search ongoing, requires ins authorizaition Time Spent With Patient Time: Total time managing care of this patient today ____ minutes. Quality Stroke Does the patient have a stroke diagnosis?: No VTE Prior VTE?: No VTE Risk Level:: Medical - low VTE Device Contraindication: N/A - Device Ordered VTE Drug Contraindication: Treatment Not Indicated
[2022-05-12] MEDS: Aspirin Enteric Coated 81 MG TABLET.DR PO (09:23)
[2022-05-12] MEDS: Atorvastatin Calcium 80 MG TABLET PO (09:24)
[2022-05-12] MEDS: Docusate Sodium 100 MG CAPSULE PO (09:25)
[2022-05-12] MEDS: polyethylene glycoL 3350 17 GM POWD.PACK PO (09:25)
[2022-05-12] MEDS: Enoxaparin Sodium 40 MG/0.4 ML SYRINGE SUBCUT (11:18)
[2022-05-13] VITALS (7 sets, daily range): BP systolic 120–153; BP diastolic 74–93; PULSE 73–100; RESP 16–20; TEMP 36.1–36.8; O2SAT 95–96
[2022-05-13] MEDS: HYDROcodone/Homat 5/1.5/5 ML 5 ML SYRUP PO (05:37)
--- NOTE | 2022-05-13 08:48 | P.PNIM_ITS ---
Subjective Subjective Date of Service: 05/13/22 Interval History: seen and examined this morning follow up for dizziness, flu no more nausea/vomiting. no abdominal pain no more dizziness Review of Systems no sob no dizziness Physical Exam Vital Signs: Vital Signs: Last Vital Signs Temp 97.5 F 05/13/22 07:57 Pulse 89 05/13/22 07:57 Resp 18 05/13/22 07:57 BP 153/93 H 05/13/22 07:57 Pulse Ox 95 05/13/22 07:57 O2 Del Method 05/13/22 07:57 O2 Flow Rate 2 05/10/22 12:00 Oxygen Flow Rate 2 05/06/22 15:24 BMI result Body Mass Index 24.9 Const: General: cooperative, comfortable, no acute distress, alert and awake Resp: Effort & Inspection: normal respiratory effort and able to speak in complete sentences Auscultation: clear to auscultation bilaterally Cardio: Rate: regular rate Rhythm: regular rhythm Heart sounds: S1 normal heart sound present and S2 normal heart sound present GI: Inspection: No distended Palpation (GI): Soft to palpation and nontender Auscultation: normal bowel sounds Skin: General skin exam: no rashes or lesions noted Neuro: Other: no focal neuro deficits Cognition (Neuro): normal cognition Extrem: General: Yes normal to inspection and Yes no pedal edema Objective Data Active Medications Acetaminophen (Acetaminophen 325 Mg Tablet) 650 mg PO Q6H PRN PRN Reason: Pain, Mild (Pain Scale 1-3) Last Admin: 05/07/22 20:20 Dose: 650 mg Documented By: YOANA Albuterol/Ipratropium (Albuterol/Iprat 2.5/0.5mg 3 Ml Ampul.Neb) 3 ml INHALE RQ6H WHILE AWAKE PRN PRN Reason: shortness of breath/wheezing Aspirin (Aspirin Enteric Coated 81 Mg Tablet.) 81 mg PO DAILY [facility] Last Admin: 05/12/22 09:23 Dose: 81 mg Documented By: BROOKLYN Atorvastatin Calcium (Atorvastatin Calcium 80 Mg Tablet) 80 mg PO DAILY [facility] Last Admin: 05/12/22 09:24 Dose: 80 mg Documented By: BROOKLYN Docusate Sodium (Docusate Sodium 100 Mg Capsule) 100 mg PO DAILY [facility] Last Admin: 05/12/22 09:25 Dose: 100 mg Documented By: BROOKLYN Enoxaparin Sodium (Enoxaparin Sodium 40 Mg/0.4 Ml Syringe) 40 mg SUBCUT Q24H [facility] Last Admin: 05/12/22 11:18 Dose: 40 mg Documented By: BROOKLYN Fluticasone Propionate (Fluticasone Propionate Nasal 16 Gm [place]) 2 spray NOSTRIL-B DAILY [facility] Last Admin: 05/12/22 10:35 Dose: Not Given Documented By: BROOKLYN Non-Admin Reason: Patient Refused Hydrocodone Bit/Homatropine Methylb (Hydrocodone/Homat 5/1.5/5 Ml 5 Ml Syrup) 5 ml PO Q4H PRN PRN Reason: Cough Last Admin: 05/13/22 05:37 Dose: 5 ml Documented By: JEROME Meclizine HCl (Meclizine Hcl 12.5 Mg Tablet) 12.5 mg PO Q8H PRN PRN Reason: vertigo Last Admin: 05/09/22 07:31 Dose: 12.5 mg Documented By: MARCOS Ondansetron HCl (Ondansetron Hcl 4 Mg/2 Ml Vial) 4 mg IVPUSH Q8H PRN PRN Reason: Nausea and Vomiting Last Admin: 05/11/22 02:22 Dose: 4 mg Documented By: CABRERA Pharmacy Consult (Consult Rx Perform Med Rec) 1 each MISCELLANE ONCE PRN PRN Reason: Consult order Polyethylene Glycol (Polyethylene Glycol 3350 17 Gm Powd.Pack) 17 gm PO DAILY [facility] Last Admin: 05/12/22 09:25 Dose: 17 gm Documented By: BROOKLYN Labs CBC & Chem 7: 05/09/22 06:24 05/09/22 06:24 Assessment and Plan (1) Vertigo: Status: Acute (2) Influenza A: Status: Acute Plan this is an 82-year-old female with past medical history of COPD, chronic respiratory failure on 2L supplemental O2 at baseline, as well as remote history of breast cancer presents to the hospital with complaints of vomiting, as well as dizziness found to have acute influenza infection as well as subacute infarct ?CVA- CT punctate 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 No acute infarct or hemorrhage on MRI neuro appreciated - felt to be incidental and noncontributory to symptoms and therefore CVA ruled out Continue asa 81mg, statin PT - recommending STR vertigo meclizine prn influenza a infection previously documented that patient uses 2 L of oxygen at baseline, but patient denies using at home completed course of Tamiflu PRN breathing treatment 92% on room air COPD- No exacerbation prn breathing treatments continue home inhaler DVT prophylaxis:? lovenox full code reason for continued hospitalization:safe disposition dispo - PT rec STR, bed search ongoing, requires ins authorizaition Time Spent With Patient Time: Total time managing care of this patient today ____ minutes. Quality Stroke Does the patient have a stroke diagnosis?: No VTE Prior VTE?: No VTE Risk Level:: Medical - low VTE Device Contraindication: N/A - Device Ordered VTE Drug Contraindication: Treatment Not Indicated
[2022-05-13] MEDS: Docusate Sodium 100 MG CAPSULE PO (10:55)
[2022-05-13] MEDS: Atorvastatin Calcium 80 MG TABLET PO (10:55)
[2022-05-13] MEDS: Aspirin Enteric Coated 81 MG TABLET.DR PO (10:55)
[2022-05-13] MEDS: Enoxaparin Sodium 40 MG/0.4 ML SYRINGE SUBCUT (10:56)
--- NOTE | 2022-05-13 13:39 | MHC.CM.PN ---
Patient is medically cleared for dc to SNF/STR but has no accepting facility. CM has requested that [facility], [facility], and [facility] attempt to obtain m OON contract with [facility]; CM awaits responses.
--- NOTE | 2022-05-13 14:05 | MHC.CM.PN ---
Thus far, neither [facility] nor [facility] is able to assist with an OON contract with [facility]; CM awaits a response from [employer] [facility] [employer].
[2022-05-14 04:00] VITALS: BP 148/97; PULSE 86; RESP 18; TEMP 36.5; O2SAT 96
[2022-05-14 07:32] VITALS: BP 128/81; PULSE 75; RESP 20; TEMP 36.2; O2SAT 95
[2022-05-14] MEDS: Atorvastatin Calcium 80 MG TABLET PO (09:31)
[2022-05-14] MEDS: Aspirin Enteric Coated 81 MG TABLET.DR PO (09:31)
[2022-05-14] MEDS: Docusate Sodium 100 MG CAPSULE PO (09:31)
[2022-05-14 10:10] VITALS: BP 128/81; PULSE 75; O2SAT 95
[2022-05-14 11:26] VITALS: BP 134/86; PULSE 90; RESP 20; TEMP 36.6; O2SAT 93
--- NOTE | 2022-05-14 11:37 | P.PNIM_ITS ---
Subjective Subjective Date of Service: 05/14/22 Interval History: seen and examined this morning follow up for dizziness, flu no more nausea/vomiting. no abdominal pain no more dizziness and overall doing well Review of Systems no sob no dizziness Physical Exam Vital Signs: Vital Signs: Last Vital Signs Temp 97.8 F 05/14/22 11:26 Pulse 90 05/14/22 11:26 Resp 20 05/14/22 11:26 BP 134/86 05/14/22 11:26 Pulse Ox 93 05/14/22 11:26 O2 Del Method 05/14/22 11:26 O2 Flow Rate 2 05/10/22 12:00 Oxygen Flow Rate 2 05/06/22 15:24 BMI result Body Mass Index 24.9 Const: General: cooperative, comfortable, no acute distress, alert and awake Resp: Effort & Inspection: normal respiratory effort and able to speak in complete sentences Auscultation: clear to auscultation bilaterally Cardio: Rate: regular rate Rhythm: regular rhythm Heart sounds: S1 normal heart sound present and S2 normal heart sound present GI: Inspection: No distended Palpation (GI): Soft to palpation and nontender Auscultation: normal bowel sounds Skin: General skin exam: no rashes or lesions noted Neuro: Other: no focal neuro deficits Cognition (Neuro): normal cognition Extrem: General: Yes normal to inspection and Yes no pedal edema Objective Data Active Medications Acetaminophen (Acetaminophen 325 Mg Tablet) 650 mg PO Q6H PRN PRN Reason: Pain, Mild (Pain Scale 1-3) Last Admin: 05/07/22 20:20 Dose: 650 mg Documented By: YOANA Albuterol/Ipratropium (Albuterol/Iprat 2.5/0.5mg 3 Ml Ampul.Neb) 3 ml INHALE RQ6H WHILE AWAKE PRN PRN Reason: shortness of breath/wheezing Aspirin (Aspirin Enteric Coated 81 Mg Tablet.) 81 mg PO DAILY [facility] Last Admin: 05/14/22 09:31 Dose: 81 mg Documented By: CHASTITY Atorvastatin Calcium (Atorvastatin Calcium 80 Mg Tablet) 80 mg PO DAILY [facility] Last Admin: 05/14/22 09:31 Dose: 80 mg Documented By: CHASTITY Docusate Sodium (Docusate Sodium 100 Mg Capsule) 100 mg PO DAILY [facility] Last Admin: 12/20/22 09:31 Dose: 100 mg Documented By: CHASTITY Enoxaparin Sodium (Enoxaparin Sodium 40 Mg/0.4 Ml Syringe) 40 mg SUBCUT Q24H [facility] Last Admin: 05/13/22 10:56 Dose: 40 mg Documented By: KRISTIN Fluticasone Propionate (Fluticasone Propionate Nasal 16 Gm [place]) 2 spray NOSTRIL-B DAILY [facility] Last Admin: 05/14/22 09:33 Dose: Not Given Documented By: CHASTITY Non-Admin Reason: Patient Refused Hydrocodone Bit/Homatropine Methylb (Hydrocodone/Homat 5/1.5/5 Ml 5 Ml Syrup) 5 ml PO Q4H PRN PRN Reason: Cough Last Admin: 05/13/22 05:37 Dose: 5 ml Documented By: JEROME Meclizine HCl (Meclizine Hcl 12.5 Mg Tablet) 12.5 mg PO Q8H PRN PRN Reason: vertigo Last Admin: 05/09/22 07:31 Dose: 12.5 mg Documented By: MARCOS Ondansetron HCl (Ondansetron Hcl 4 Mg/2 Ml Vial) 4 mg IVPUSH Q8H PRN PRN Reason: Nausea and Vomiting Last Admin: 05/11/22 02:22 Dose: 4 mg Documented By: CABRERA Pharmacy Consult (Consult Rx Perform Med Rec) 1 each MISCELLANE ONCE PRN PRN Reason: Consult order Polyethylene Glycol (Polyethylene Glycol 3350 17 Gm Powd.Pack) 17 gm PO DAILY [facility] Last Admin: 05/14/22 09:33 Dose: Not Given Documented By: CHASTITY Non-Admin Reason: Patient Refused Labs CBC & Chem 7: 05/09/22 06:24 05/09/22 06:24 Assessment and Plan (1) Vertigo: Status: Acute (2) Influenza A: Status: Acute Plan 82-year-old female with past medical history of COPD, chronic respiratory failure on 2L supplemental O2 at baseline, as well as remote history of breast cancer presents to the hospital with complaints of vomiting, as well as dizziness found to have acute influenza infection as well as subacute infarct ?CVA- CT punctate 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 No acute infarct or hemorrhage on MRI neuro appreciated - felt to be incidental and noncontributory to symptoms and therefore CVA ruled out Continue asa 81mg, statin PT - recommending STR vertigo meclizine prn influenza a infection previously documented that patient uses 2 L of oxygen at baseline, but patient denies using at home completed course of Tamiflu PRN breathing treatment 92% on room air COPD- No exacerbation prn breathing treatments continue home inhaler DVT prophylaxis:? lovenox full code reason for continued hospitalization:safe disposition dispo - PT rec STR, bed search ongoing, Time Spent With Patient Time: Total time managing care of this patient today ____ minutes. Quality Stroke Does the patient have a stroke diagnosis?: No VTE Prior VTE?: No VTE Risk Level:: Medical - low VTE Device Contraindication: N/A - Device Ordered VTE Drug Contraindication: Treatment Not Indicated
[2022-05-14] MEDS: Enoxaparin Sodium 40 MG/0.4 ML SYRINGE SUBCUT (11:56)
[2022-05-14 15:58] VITALS: BP 141/90; PULSE 92; RESP 17; TEMP 36.3; O2SAT 96
[2022-05-14 19:21] VITALS: BP 149/93; PULSE 88; RESP 16; TEMP 36.3; O2SAT 94
[2022-05-15 03:30] VITALS: BP 133/80; PULSE 73; RESP 16; TEMP 36.9; O2SAT 95
[2022-05-15 08:00] VITALS: BP 127/76; PULSE 80; RESP 16; TEMP 36.6; O2SAT 97
[2022-05-15] MEDS: Aspirin Enteric Coated 81 MG TABLET.DR PO (09:41)
[2022-05-15] MEDS: Docusate Sodium 100 MG CAPSULE PO (09:41)
[2022-05-15] MEDS: Atorvastatin Calcium 80 MG TABLET PO (09:41)
[2022-05-15] MEDS: polyethylene glycoL 3350 17 GM POWD.PACK PO (09:42)
[2022-05-15] MEDS: Enoxaparin Sodium 40 MG/0.4 ML SYRINGE SUBCUT (09:45)
--- NOTE | 2022-05-15 10:41 | P.PNIM_ITS ---
Subjective Subjective Date of Service: 05/15/22 Interval History: seen and examined this morning follow up for dizziness, flu no dizziness, no sob Review of Systems no sob no dizziness Physical Exam Vital Signs: Vital Signs: Last Vital Signs Temp 97.8 F 05/15/22 08:00 Pulse 80 05/15/22 08:00 Resp 16 05/15/22 08:00 BP 127/76 05/15/22 08:00 Pulse Ox 97 05/15/22 08:00 O2 Del Method 05/15/22 08:00 O2 Flow Rate 2 05/10/22 12:00 Oxygen Flow Rate 2 05/06/22 15:24 BMI result Body Mass Index 24.9 Const: Other: General: AO X 3, no acute distress Resp: CTA bilateral CVS: S1,S2,RRR GI: +BS, NT, no distention Skin: No rash Neuro: motor grossly intact Psych: appropriate affect Objective Data Active Medications Acetaminophen (Acetaminophen 325 Mg Tablet) 650 mg PO Q6H PRN PRN Reason: Pain, Mild (Pain Scale 1-3) Last Admin: 05/07/22 20:20 Dose: 650 mg Documented By: YOANA Albuterol/Ipratropium (Albuterol/Iprat 2.5/0.5mg 3 Ml Ampul.Neb) 3 ml INHALE RQ 6H WHILE AWAKE PRN PRN Reason: shortness of breath/wheezing Aspirin (Aspirin Enteric Coated 81 Mg Tablet.) 81 mg PO DAILY [facility] Last Admin: 05/15/22 09:41 Dose: 81 mg Documented By: DESIREE Atorvastatin Calcium (Atorvastatin Calcium 80 Mg Tablet) 80 mg PO DAILY [facility] Last Admin: 05/15/22 09:41 Dose: 80 mg Documented By: DESIREE Docusate Sodium (Docusate Sodium 100 Mg Capsule) 100 mg PO DAILY [facility] Last Admin: 05/15/22 09:41 Dose: 100 mg Documented By: DESIREE Enoxaparin Sodium (Enoxaparin Sodium 40 Mg/0.4 Ml Syringe) 40 mg SUBCUT Q24H [facility] Last Admin: 05/15/22 09:45 Dose: 40 mg Documented By: DESIREE Fluticasone Propionate (Fluticasone Propionate Nasal 16 Gm [place]) 2 spray NOSTRIL-B DAILY [facility] Last Admin: 05/15/22 09:42 Dose: Not Given Documented By: DESIREE Non-Admin Reason: Patient Refused Hydrocodone Bit/Homatropine Methylb (Hydrocodone/Homat 5/1.5/5 Ml 5 Ml Syrup) 5 ml PO Q4H PRN PRN Reason: Cough Last Admin: 05/13/22 05:37 Dose: 5 ml Documented By: JEROME Meclizine HCl (Meclizine Hcl 12.5 Mg Tablet) 12.5 mg PO Q8H PRN PRN Reason: vertigo Last Admin: 05/09/22 07:31 Dose: 12.5 mg Documented By: OSVALDO-RIVSIRI Ondansetron HCl (Ondansetron Hcl 4 Mg/2 Ml Vial) 4 mg IVPUSH Q8H PRN PRN Reason: Nausea and Vomiting Last Admin: 05/11/22 02:22 Dose: 4 mg Documented By: CABRERA Pharmacy Consult (Consult Rx Perform Med Rec) 1 each MISCELLANE ONCE PRN PRN Reason: Consult order Polyethylene Glycol (Polyethylene Glycol 3350 17 Gm Powd.Pack) 17 gm PO DAILY [facility] Last Admin: 05/15/22 09:42 Dose: 17 gm Documented By: DESIREE Labs CBC & Chem 7: 05/09/22 06:24 05/09/22 06:24 Assessment and Plan (1) Vertigo: Status: Acute (2) Influenza A: Status: Acute Plan 82-year-old female with past medical history of COPD, chronic respiratory failure on 2L supplemental O2 at baseline, as well as remote history of breast cancer presents to the hospital with complaints of vomiting, as well as dizziness found to have acute influenza infection as well as subacute infarct ?CVA- CT punctate 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 No acute infarct or hemorrhage on MRI neuro appreciated - felt to be incidental and noncontributory to symptoms and th erefore CVA ruled out Continue asa 81mg, statin PT - recommending STR, rehab bed pending, will dc today if bed available vertigo meclizine prn influenza a infection previously documented that patient uses 2 L of oxygen at baseline, but patient denies using at home completed course of Tamiflu PRN breathing treatment 92% on room air COPD- No exacerbation prn breathing treatments continue home inhaler DVT prophylaxis:? lovenox full code reason for continued hospitalization:safe disposition dispo - PT rec STR, bed search ongoing, Time Spent With Patient Time: Total time managing care of this patient today ____ minutes. Quality Stroke Does the patient have a stroke diagnosis?: No VTE Prior VTE?: No VTE Risk Level:: Medical - low VTE Device Contraindication: N/A - Device Ordered VTE Drug Contraindication: Treatment Not Indicated
[2022-05-15 11:17] VITALS: BP 116/75; PULSE 89; RESP 20; TEMP 35.9; O2SAT 96
[2022-05-15 13:29] VITALS: BP 116/75; PULSE 89; O2SAT 96
[2022-05-15 15:45] VITALS: BP 130/86; PULSE 88; RESP 16; TEMP 36.6; O2SAT 96
[2022-05-15 19:56] VITALS: BP 126/84; PULSE 89; RESP 16; TEMP 36.5; O2SAT 95
[2022-05-16 07:03] VITALS: BP 127/70; PULSE 71; RESP 20; TEMP 36.5; O2SAT 92
[2022-05-16] MEDS: Aspirin Enteric Coated 81 MG TABLET.DR PO (09:18)
[2022-05-16] MEDS: Atorvastatin Calcium 80 MG TABLET PO (09:18)
[2022-05-16] MEDS: Docusate Sodium 100 MG CAPSULE PO (09:18)
[2022-05-16 11:11] VITALS: BP 125/87; PULSE 86; RESP 20; TEMP 36.9; O2SAT 94
[2022-05-16] MEDS: Enoxaparin Sodium 40 MG/0.4 ML SYRINGE SUBCUT (11:11)
[2022-05-16] MEDS: polyethylene glycoL 3350 17 GM POWD.PACK PO (11:15)
[2022-05-16] MEDS: Lactulose 20 GM/30 ML SOLUTION PO ×2 (12:41→19:44)
--- NOTE | 2022-05-16 14:40 | HO.PM.IMPN ---
Subjective Subjective Date of Service: 05/16/22 Interval History: the patient was seen and evaluated this morning Laying in bed, feels Much better with improvement to vertigo on room air, denies any shortness of breath No reported other overnight events. Systemic review: No fever, chills or weakness No chest pain, palpitation No shortness of breath or coughing No abdominal pain, nausea or vomiting No urinary symptoms No reported rash Physical Exam Vital Signs: Vital Signs: Last Vital Signs Temp 98.5 F 05/16/22 11:11 Pulse 86 05/16/22 11:11 Resp 20 05/16/22 11:11 BP 125/87 05/16/22 11:11 Pulse Ox 94 05/16/22 11:11 O2 Del Method 05/16/22 11:11 O2 Flow Rate 2 05/10/22 12:00 Oxygen Flow Rate 2 05/06/22 15:24 BMI result Body Mass Index 24.9 Const: Other: General: AO X 3, no acute distress Resp: CTA bilateral, on room CVS: S1,S2,RRR GI: +BS, NT, no distention Skin: No rash Neuro: motor grossly intact Psych: appropriate affect Objective Data Active Medications Acetaminophen (Acetaminophen 325 Mg Tablet) 650 mg PO Q6H PRN PRN Reason: Pain, Mild (Pain Scale 1-3) Last Admin: 05/07/22 20:20 Dose: 650 mg Documented By: YOANA Albuterol/Ipratropium (Albuterol/Iprat 2.5/0.5mg 3 Ml Ampul.Neb) 3 ml INHALE RQ6H WHILE AWAKE PRN PRN Reason: shortness of breath/wheezing Aspirin (Aspirin Enteric Coated 81 Mg Tablet.) 81 mg PO DAILY [facility] Last Admin: 05/16/22 09:18 Dose: 81 mg Documented By: CHASTITY Atorvastatin Calcium (Atorvastatin Calcium 80 Mg Tablet) 80 mg PO DAILY [facility] Last Admin: 05/16/22 09:18 Dose: 80 mg Documented By: CHASTITY Docusate Sodium (Docusate Sodium 100 Mg Capsule) 100 mg PO DAILY [facility] Last Admin: 05/16/22 09:18 Dose: 100 mg Documented By: CHASTITY Enoxaparin Sodium (Enoxaparin Sodium 40 Mg/0.4 Ml Syringe) 40 mg SUBCUT Q24H [facility] Last Admin: 05/16/22 11:11 Dose: 40 mg Documented By: CHASTITY Fluticasone Propionate (Fluticasone Propionate Nasal 16 Gm [place]) 2 spray NOSTRIL-B DAILY [facility] Last Admin: 05/16/22 09:21 Dose: Not Given Documented By: CHASTITY Non-Admin Reason: Patient Refused Hydrocodone Bit/Homatropine Methylb (Hydrocodone/Homat 5/1.5/5 Ml 5 Ml Syrup) 5 ml PO Q4H PRN PRN Reason: Cough Last Admin: 05/13/22 05:37 Dose: 5 ml Documented By: JEROME Lactulose (Lactulose 20 Gm/30 Ml Solution) 20 gm PO BID [facility] Last Admin: 05/16/22 12:41 Dose: 20 gm Documented By: CHASTITY Meclizine HCl (Meclizine Hcl 12.5 Mg Tablet) 12.5 mg PO Q8H PRN PRN Reason: vertigo Last Admin: 05/09/22 07:31 Dose: 12.5 mg Documented By: MARCOS Ondansetron HCl (Ondansetron Hcl 4 Mg/2 Ml Vial) 4 mg IVPUSH Q8H PRN PRN Reason: Nausea and Vomiting Last Admin: 05/11/22 02:22 Dose: 4 mg Documented By: CABRERA Pharmacy Consult (Consult Rx Perform Med Rec) 1 each MISCELLANE ONCE PRN PRN Reason: Consult order Polyethylene Glycol (Polyethylene Glycol 3350 17 Gm Powd.Pack) 17 gm PO DAILY [facility] Last Admin: 05/16/22 11:15 Dose: 17 gm Documented By: CHASTITY Labs CBC & Chem 7: 05/09/22 06:24 05/09/22 06:24 Assessment and Plan (1) Vertigo: Status: Acute (2) Influenza A: Status: Acute Plan 82-year-old female with past medical history of COPD, chronic respiratory failure on 2L supplemental O2 at baseline, as well as remote history of breast cancer presents to the hospital with complaints of vomiting, as well as dizziness found to have acute influenza infection as well as subacute infarct abnormal CT brain CT punctate 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 No acute infarct or hemorrhage on MRI neuro appreciated - felt to be incidental and noncontributory to symptoms and therefore CVA ruled out on asa 81mg, statin PT - recommending STR, rehab bed pending, dc today if bed available vertigo meclizine prn influenza a infection previously documented that patient uses 2 L of oxygen at baseline, but patient denies using at home completed course of Tamiflu PRN breathing treatment 92% on room air COPD- No exacerbation prn breathing treatments continue home inhaler DVT prophylaxis:? lovenox full code reason for continued hospitalization:safe disposition dispo - PT rec STR, bed search ongoing, Time Spent With Patient Time: Total time managing care of this patient today ____ minutes. Quality Stroke Does the patient have a stroke diagnosis?: No VTE Prior VTE?: No VTE Risk Level:: Medical - low VTE Device Contraindication: N/A - Device Ordered VTE Drug Contraindication: Treatment Not Indicated
--- NOTE | 2022-05-16 14:45 | MHC.CM.PN ---
Met with patient and her Community Health Worker Fransisco Nicole [phone]. No bed offers have been received with multiple referrals sent. [facility] attempted to obtain an OON contract; but there are no OON benefits. [place] suggested that the pt be unenrolled from . May 26 2022 she would have Medicare. Financial councilors have been contacted for assist with insurance. The patient has [employer] as a secondary payer. Contact info provided to Sharon for Fransisco HAMMOND. Kirill Jaime [facility] has been contacted today. The pricing director is out today. Plan is to call tomorrow when she is available. Additional STR referrals have been sent out. CM will continue to follow.
[2022-05-16 15:03] VITALS: BP 119/75; PULSE 82; RESP 18; TEMP 37.3; O2SAT 94
[2022-05-16 19:25] VITALS: BP 122/88; PULSE 83; RESP 19; TEMP 36.3; O2SAT 94
[2022-05-17 07:49] VITALS: BP 134/81; PULSE 77; RESP 20; TEMP 36.5; O2SAT 93
[2022-05-17] MEDS: Aspirin Enteric Coated 81 MG TABLET.DR PO (09:24)
[2022-05-17] MEDS: Docusate Sodium 100 MG CAPSULE PO (09:24)
[2022-05-17 11:15] VITALS: BP 130/83; PULSE 81; RESP 20; TEMP 36.7; O2SAT 94
[2022-05-17 11:44] VITALS: BP 130/83; PULSE 81; O2SAT 94
[2022-05-17] MEDS: Enoxaparin Sodium 40 MG/0.4 ML SYRINGE SUBCUT (12:38)
--- NOTE | 2022-05-17 13:21 | MHC.CM.PN ---
Referrals have been updated. Clarification provided to facility re isolation. Patient is no longer on droplet precautions. Contact with Financial astronautical engineer. Confirmed that patient needs insurance change for STR and future LTC. DP STR via BLS.
--- NOTE | 2022-05-17 13:23 | HO.PM.IMPN ---
Subjective Subjective Date of Service: 05/17/22 Interval History: the patient was seen and evaluated this morning Reporting improvement to vertigo on room air, denies any shortness of breath No reported other overnight events. Systemic review: No fever, chills or weakness No chest pain, palpitation No shortness of breath or coughing No abdominal pain, nausea or vomiting No urinary symptoms No reported rash Physical Exam Vital Signs: Vital Signs: Last Vital Signs Temp 98.1 F 05/17/22 11:15 Pulse 81 05/17/22 11:44 Resp 20 05/17/22 11:15 BP 130/83 05/17/22 11:44 Pulse Ox 94 05/17/22 11:44 O2 Del Method 05/17/22 11:15 O2 Flow Rate 2 05/10/22 12:00 Oxygen Flow Rate 2 05/06/22 15:24 BMI result Body Mass Index 24.9 Const: Other: General: AO X 3, no acute distress Resp: CTA bilateral, on room CVS: S1,S2,RRR GI: +BS, NT, no distention Skin: No rash Neuro: motor grossly intact Psych: appropriate affect Objective Data Active Medications Acetaminophen (Acetaminophen 325 Mg Tablet) 650 mg PO Q6H PRN PRN Reason: Pain, Mild (Pain Scale 1-3) Last Admin: 05/07/22 20:20 Dose: 650 mg Documented By: YOANA Albuterol/Ipratropium (Albuterol/Iprat 2.5/0.5mg 3 Ml Ampul.Neb) 3 ml INHALE RQ6H WHILE AWAKE PRN PRN Reason: shortness of breath/wheezing Aspirin (Aspirin Enteric Coated 81 Mg Tablet.) 81 mg PO DAILY [facility] Last Admin: 05/17/22 09:24 Dose: 81 mg Documented By: KRISTIN Atorvastatin Calcium (Atorvastatin Calcium 40 Mg Tablet) 40 mg PO BEDTIME [facility] Docusate Sodium (Docusate Sodium 100 Mg Capsule) 100 mg PO DAILY [facility] Last Admin: 05/17/22 09:24 Dose: 100 mg Documented By: KRISTIN Enoxaparin Sodium (Enoxaparin Sodium 40 Mg/0.4 Ml Syringe) 40 mg SUBCUT Q24H [facility] Last Admin: 05/17/22 12:38 Dose: 40 mg Documented By: KRISTIN Fluticasone Propionate (Fluticasone Propionate Nasal 16 Gm [place]) 2 spray NOSTRIL-B DAILY [facility] Last Admin: 05/17/22 09:24 Dose: Not Given Documented By: KRISTIN Non-Admin Reason: Patient Refused Hydrocodone Bit/Homatropine Methylb (Hydrocodone/Homat 5/1.5/5 Ml 5 Ml Syrup) 5 ml PO Q4H PRN PRN Reason: Cough Last Admin: 05/13/22 05:37 Dose: 5 ml Documented By: JEROME Meclizine HCl (Meclizine Hcl 12.5 Mg Tablet) 12.5 mg PO Q8H PRN PRN Reason: vertigo Last Admin: 05/09/22 07:31 Dose: 12.5 mg Documented By: OSVALDO-RIVSIRI Ondansetron HCl (Ondansetron Hcl 4 Mg/2 Ml Vial) 4 mg IVPUSH Q8H PRN PRN Reason: Nausea and Vomiting Last Admin: 05/11/22 02:22 Dose: 4 mg Documented By: CABRERA Pharmacy Consult (Consult Rx Perform Med Rec) 1 each MISCELLANE ONCE PRN PRN Reason: Consult order Polyethylene Glycol (Polyethylene Glycol 3350 17 Gm Powd.Pack) 17 gm PO DAILY [facility] Last Admin: 05/17/22 09:24 Dose: Not Given Documented By: KRISTIN Non-Admin Reason: Patient Refused Labs CBC & Chem 7: 05/09/22 06:24 05/09/22 06:24 Assessment and Plan (1) Vertigo: Status: Acute (2) Influenza A: Status: Acute Plan 82-year-old female with past medical history of COPD, chronic respiratory failure on 2L supplemental O2 at baseline, as well as remote history of breast cancer presents to the hospital with complaints of vomiting, as well as dizziness found to have acute influenza infection as well as subacute infarct abnormal CT brain CT punctate 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 keep on asa 81mg, statin PT - recommending STR, rehab bed pending, dc today if bed available vertigo meclizine prn influenza a infection previously documented that patient uses 2 L of oxygen at baseline, but patient denies using at home completed course of Tamiflu PRN breathing treatment 92% on room air COPD- No exacerbation prn breathing treatments continue home inhaler DVT prophylaxis:? lovenox reason for continued hospitalization:safe disposition Time Spent With Patient Time: Total time managing care of this patient today ____ minutes. Quality Stroke Does the patient have a stroke diagnosis?: No VTE Prior VTE?: No VTE Risk Level:: Medical - low VTE Device Contraindication: N/A - Device Ordered VTE Drug Contraindication: Treatment Not Indicated
[2022-05-17 15:31] VITALS: BP 104/86; PULSE 81; RESP 16; TEMP 36.3; O2SAT 96
[2022-05-17 19:49] VITALS: BP 135/85; PULSE 89; RESP 14; TEMP 36.7; O2SAT 93
[2022-05-17] MEDS: Atorvastatin Calcium 40 MG TABLET PO (20:20)
[2022-05-18] VITALS: BP 132/83; PULSE 89; RESP 17; TEMP 36.7; O2SAT 96
[2022-05-18 04:00] VITALS: BP 136/83; PULSE 79; RESP 18; TEMP 35.5; O2SAT 96
[2022-05-18 07:58] VITALS: BP 129/83; PULSE 77; RESP 17; TEMP 37; O2SAT 97
[2022-05-18] MEDS: Aspirin Enteric Coated 81 MG TABLET.DR PO (09:27)
[2022-05-18 11:36] VITALS: BP 136/88; PULSE 85; RESP 17; TEMP 36.6; O2SAT 97
--- NOTE | 2022-05-18 11:46 | HO.PM.IMPN ---
Subjective Subjective Date of Service: 05/18/22 Interval History: the patient was seen and evaluated this morning Reporting improvement to vertigo on room air, denies any shortness of breath No reported other overnight events. Systemic review: No fever, chills or weakness No chest pain, palpitation No shortness of breath or coughing No abdominal pain, nausea or vomiting No urinary symptoms No reported rash Physical Exam Vital Signs: Vital Signs: Last Vital Signs Temp 97.9 F 05/18/22 11:36 Pulse 85 05/18/22 11:36 Resp 17 05/18/22 11:36 BP 136/88 05/18/22 11:36 Pulse Ox 97 05/18/22 11:36 O2 Del Method 05/18/22 11:36 O2 Flow Rate 2 05/10/22 12:00 Oxygen Flow Rate 2 05/06/22 15:24 BMI result Body Mass Index 24.9 Const: Other: General: AO X 3, no acute distress Resp: CTA bilateral, on room CVS: S1,S2,RRR GI: +BS, NT, no distention Skin: No rash Neuro: motor grossly intact Psych: appropriate affect Objective Data Active Medications Acetaminophen (Acetaminophen 325 Mg Tablet) 650 mg PO Q6H PRN PRN Reason: Pain, Mild (Pain Scale 1-3) Last Admin: 05/07/22 20:20 Dose: 650 mg Documented By: YOANA Albuterol/Ipratropium (Albuterol/Iprat 2.5/0.5mg 3 Ml Ampul.Neb) 3 ml INHALE RQ6H WHILE AWAKE PRN PRN Reason: shortness of breath/wheezing Aspirin (Aspirin Enteric Coated 81 Mg Tablet.) 81 mg PO DAILY [facility] Last Admin: 05/18/22 09:27 Dose: 81 mg Documented By: ROXIE Atorvastatin Calcium (Atorvastatin Calcium 40 Mg Tablet) 40 mg PO BEDTIME [facility] [place] Last Admin: 05/17/22 20:20 Dose: 40 mg Documented By: JAN Docusate Sodium (Docusate Sodium 100 Mg Capsule) 100 mg PO DAILY [facility] [place] Last Admin: 05/18/22 09:27 Dose: Not Given Documented By: ROXIE Non-Admin Reason: Patient Refused Enoxaparin Sodium (Enoxaparin Sodium 40 Mg/0.4 Ml Syringe) 40 mg SUBCUT Q24H [facility] [place] Last Admin: 05/17/22 12:38 Dose: 40 mg Documented By: KRISTIN Fluticasone Propionate (Fluticasone Propionate Nasal 16 Gm [place]) 2 spray NOSTRIL-B DAILY [facility] [place] Last Admin: 05/18/22 09:27 Dose: Not Given Documented By: ROXIE Non-Admin Reason: Patient Refused Hydrocodone Bit/Homatropine Methylb (Hydrocodone/Homat 5/1.5/5 Ml 5 Ml Syrup) 5 ml PO Q4H PRN PRN Reason: Cough Last Admin: 05/13/22 05:37 Dose: 5 ml Documented By: JEROME Meclizine HCl (Meclizine Hcl 12.5 Mg Tablet) 12.5 mg PO Q8H PRN PRN Reason: vertigo Last Admin: 05/09/22 07:31 Dose: 12.5 mg Documented By: OSVALDO-RIVSIRI Ondansetron HCl (Ondansetron Hcl 4 Mg/2 Ml Vial) 4 mg IVPUSH Q8H PRN PRN Reason: Nausea and Vomiting Last Admin: 05/11/22 02:22 Dose: 4 mg Documented By: CABRERA Pharmacy Consult (Consult Rx Perform Med Rec) 1 each MISCELLANE ONCE PRN PRN Reason: Consult order Polyethylene Glycol (Polyethylene Glycol 3350 17 Gm Powd.Pack) 17 gm PO DAILY [facility] [place] Last Admin: 05/18/22 09:27 Dose: Not Given Documented By: ROXIE Non-Admin Reason: Patient Refused Labs CBC & Chem 7: 05/09/22 06:24 05/09/22 06:24 Assessment and Plan (1) Vertigo: Status: Acute (2) Influenza A: Status: Acute Plan 82-year-old female with past medical history of COPD, chronic respiratory failure on 2L supplemental O2 at baseline, as well as remote history of breast cancer presents to the hospital with complaints of vomiting, as well as dizziness found to have acute influenza infection as well as subacute infarct abnormal CT brain CT punctate 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 keep on asa 81mg, statin PT - recommending STR, rehab bed pending, dc today if bed available vertigo meclizine prn influenza a infection previously documented that patient uses 2 L of oxygen at baseline, but patient denies using at home completed course of Tamiflu PRN breathing treatment 92% on room air COPD- No exacerbation prn breathing treatments continue home inhaler DVT prophylaxis:? lovenox reason for continued hospitalization:safe disposition Time Spent With Patient Time: Total time managing care of this patient today ____ minutes. Quality Stroke Does the patient have a stroke diagnosis?: No VTE Prior VTE?: No VTE Risk Level:: Medical - low VTE Device Contraindication: N/A - Device Ordered VTE Drug Contraindication: Treatment Not Indicated
[2022-05-18] MEDS: Enoxaparin Sodium 40 MG/0.4 ML SYRINGE SUBCUT (14:43)
[2022-05-18 15:20] VITALS: BP 122/77; PULSE 88; RESP 18; TEMP 36.6; O2SAT 94
[2022-05-18] MEDS: Atorvastatin Calcium 40 MG TABLET PO (19:47)
[2022-05-18 20:00] VITALS: BP 144/82; PULSE 80; RESP 18; TEMP 36.7; O2SAT 94
[2022-05-19 08:00] VITALS: BP 138/76; PULSE 77; RESP 16; TEMP 36.9; O2SAT 96
[2022-05-19] MEDS: Aspirin Enteric Coated 81 MG TABLET.DR PO (08:58)
[2022-05-19] MEDS: Enoxaparin Sodium 40 MG/0.4 ML SYRINGE SUBCUT (11:42)
[2022-05-19 11:50] VITALS: BP 136/84; PULSE 79; RESP 16; TEMP 36.2; O2SAT 96
--- NOTE | 2022-05-19 11:52 | HO.PM.IMPN ---
Subjective Subjective Date of Service: 05/19/22 Interval History: the patient was seen and evaluated this morning Reporting improvement to vertigo on room air, denies any shortness of breath No reported other overnight events. Systemic review: No fever, chills or weakness No chest pain, palpitation No shortness of breath or coughing No abdominal pain, nausea or vomiting No urinary symptoms No reported rash Physical Exam Vital Signs: Vital Signs: Last Vital Signs Temp 97.2 F 05/19/22 11:50 Pulse 79 05/19/22 11:50 Resp 16 05/19/22 11:50 BP 136/84 05/19/22 11:50 Pulse Ox 96 05/19/22 11:50 O2 Del Method 05/19/22 11:50 O2 Flow Rate 2 05/10/22 12:00 Oxygen Flow Rate 2 05/06/22 15:24 BMI result Body Mass Index 24.9 Const: Other: General: AO X 3, no acute distress Resp: CTA bilateral, on room CVS: S1,S2,RRR GI: +BS, NT, no distention Skin: No rash Neuro: motor grossly intact Psych: appropriate affect Objective Data Active Medications Acetaminophen (Acetaminophen 325 Mg Tablet) 650 mg PO Q6H PRN PRN Reason: Pain, Mild (Pain Scale 1-3) Last Admin: 05/07/22 20:20 Dose: 650 mg Documented By: YOANA Aspirin (Aspirin Enteric Coated 81 Mg Tablet.) 81 mg PO DAILY [facility] Last Admin: 05/19/22 08:58 Dose: 81 mg Documented By: JACKY Atorvastatin Calcium (Atorvastatin Calcium 40 Mg Tablet) 40 mg PO BEDTIME [facility] Last Admin: 05/18/22 19:47 Dose: 40 mg Documented By: CHERYL Docusate Sodium (Docusate Sodium 100 Mg Capsule) 100 mg PO DAILY [facility] Last Admin: 05/19/22 08:59 Dose: Not Given Documented By: JACKY Non-Admin Reason: Patient Refused Enoxaparin Sodium (Enoxaparin Sodium 40 Mg/0.4 Ml Syringe) 40 mg SUBCUT Q24H [facility] Last Admin: 05/19/22 11:42 Dose: 40 mg Documented By: JACKY Fluticasone Propionate (Fluticasone Propionate Nasal 16 Gm [place]) 2 spray NOSTRIL-B DAILY [facility] Last Admin: 05/19/22 08:59 Dose: Not Given Documented By: JACKY Non-Admin Reason: Patient Refused Hydrocodone Bit/Homatropine Methylb (Hydrocodone/Homat 5/1.5/5 Ml 5 Ml Syrup) 5 ml PO Q4H PRN PRN Reason: Cough Last Admin: 05/13/22 05:37 Dose: 5 ml Documented By: JEROME Meclizine HCl (Meclizine Hcl 12.5 Mg Tablet) 12.5 mg PO Q8H PRN PRN Reason: vertigo Last Admin: 05/09/22 07:31 Dose: 12.5 mg Documented By: OSVALDO-RIVSIRI Ondansetron HCl (Ondansetron Hcl 4 Mg/2 Ml Vial) 4 mg IVPUSH Q8H PRN PRN Reason: Nausea and Vomiting Last Admin: 05/11/22 02:22 Dose: 4 mg Documented By: CABRERA Pharmacy Consult (Consult Rx Perform Med Rec) 1 each MISCELLANE ONCE PRN PRN Reason: Consult order Polyethylene Glycol (Polyethylene Glycol 3350 17 Gm Powd.Pack) 17 gm PO DAILY [facility] Last Admin: 05/19/22 08:59 Dose: Not Given Documented By: JACKY Non-Admin Reason: Patient Refused Labs CBC & Chem 7: 05/09/22 06:24 05/09/22 06:24 Assessment and Plan (1) Vertigo: Status: Acute (2) Influenza A: Status: Acute Plan 82-year-old female with past medical history of COPD, chronic respiratory failure on 2L supplemental O2 at baseline, as well as remote history of breast cancer presents to the hospital with complaints of vomiting, as well as dizziness found to have acute influenza infection as well as subacute infarct abnormal CT brain CT punctate 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 keep on asa 81mg, statin PT - recommending STR, rehab bed pending, dc today if bed available vertigo meclizine prn influenza a infection previously documented that patient uses 2 L of oxygen at baseline, but patient denies using at home completed course of Tamiflu PRN breathing treatment 92% on room air COPD- No exacerbation prn breathing treatments continue home inhaler DVT prophylaxis:? lovenox reason for continued hospitalization:safe disposition Time Spent With Patient Time: Total time managing care of this patient today ____ minutes. Quality Stroke Does the patient have a stroke diagnosis?: No VTE Prior VTE?: No VTE Risk Level:: Medical - low VTE Device Contraindication: N/A - Device Ordered VTE Drug Contraindication: Treatment Not Indicated
[2022-05-19 15:32] VITALS: BP 134/83; PULSE 88; RESP 18; TEMP 36.6; O2SAT 96
[2022-05-19 20:00] VITALS: BP 133/90; PULSE 86; RESP 18; TEMP 37.1; O2SAT 94
[2022-05-19] MEDS: Atorvastatin Calcium 40 MG TABLET PO (21:39)
[2022-05-20] MEDS: Aspirin Enteric Coated 81 MG TABLET.DR PO (07:41)
[2022-05-20 08:00] VITALS: BP 126/77; PULSE 78; RESP 14; TEMP 36.2; O2SAT 97
--- NOTE | 2022-05-20 09:46 | HO.PM.IMPN ---
Subjective Subjective Date of Service: 05/20/22 Interval History: the patient was seen and evaluated this morning Reporting improvement to vertigo on room air, denies any shortness of breath No reported other overnight events. Systemic review: No fever, chills or weakness No chest pain, palpitation No shortness of breath or coughing No abdominal pain, nausea or vomiting No urinary symptoms No reported rash Physical Exam Vital Signs: Vital Signs: Last Vital Signs Temp 97.1 F 05/20/22 08:00 Pulse 78 05/20/22 08:00 Resp 14 05/20/22 08:00 BP 126/77 05/20/22 08:00 Pulse Ox 97 05/20/22 08:00 O2 Del Method 05/20/22 08:00 O2 Flow Rate 2 05/10/22 12:00 Oxygen Flow Rate 2 05/06/22 15:24 BMI result Body Mass Index 24.9 Const: Other: General: AO X 3, no acute distress Resp: CTA bilateral, on room CVS: S1,S2,RRR GI: +BS, NT, no distention Skin: No rash Neuro: motor grossly intact Psych: appropriate affect Objective Data Active Medications Acetaminophen (Acetaminophen 325 Mg Tablet) 650 mg PO Q6H PRN PRN Reason: Pain, Mild (Pain Scale 1-3) Last Admin: 05/07/22 20:20 Dose: 650 mg Documented By: YOANA Aspirin (Aspirin Enteric Coated 81 Mg Tablet.) 81 mg PO DAILY [facility] Last Admin: 05/20/22 07:41 Dose: 81 mg Documented By: JACKY Atorvastatin Calcium (Atorvastatin Calcium 40 Mg Tablet) 40 mg PO BEDTIME [facility] Last Admin: 05/19/22 21:39 Dose: 40 mg Documented By: CHUN Calcium Carbonate (Calcium Carbonate 750 Mg Tab.Chew) 750 mg PO Q4H PRN PRN Reason: Heartburn Docusate Sodium (Docusate Sodium 100 Mg Capsule) 100 mg PO DAILY [facility] Last Admin: 05/20/22 07:41 Dose: Not Given Documented By: JACKY Non-Admin Reason: Patient Refused Enoxaparin Sodium (Enoxaparin Sodium 40 Mg/0.4 Ml Syringe) 40 mg SUBCUT Q24H [facility] Last Admin: 05/19/22 11:42 Dose: 40 mg Documented By: JACKY Fluticasone Propionate (Fluticasone Propionate Nasal 16 Gm [place]) 2 spray NOSTRIL-B DAILY [facility] Last Admin: 05/20/22 08:23 Dose: Not Given Documented By: JACKY Non-Admin Reason: Patient Refused Hydrocodone Bit/Homatropine Methylb (Hydrocodone/Homat 5/1.5/5 Ml 5 Ml Syrup) 5 ml PO Q4H PRN PRN Reason: Cough Last Admin: 05/13/22 05:37 Dose: 5 ml Documented By: JEROME Meclizine HCl (Meclizine Hcl 12.5 Mg Tablet) 12.5 mg PO Q8H PRN PRN Reason: vertigo Last Admin: 05/09/22 07:31 Dose: 12.5 mg Documented By: OSVALDO-RIVSIRI Ondansetron HCl (Ondansetron Hcl 4 Mg/2 Ml Vial) 4 mg IVPUSH Q8H PRN PRN Reason: Nausea and Vomiting Last Admin: 05/11/22 02:22 Dose: 4 mg Documented By: CABRERA Pharmacy Consult (Consult Rx Perform Med Rec) 1 each MISCELLANE ONCE PRN PRN Reason: Consult order Polyethylene Glycol (Polyethylene Glycol 3350 17 Gm Powd.Pack) 17 gm PO DAILY [facility] Last Admin: 05/20/22 07:41 Dose: Not Given Documented By: JACKY Non-Admin Reason: Patient Refused Labs CBC & Chem 7: 05/09/22 06:24 05/09/22 06:24 Assessment and Plan (1) Vertigo: Status: Acute Plan 82-year-old female with past medical history of COPD, chronic respiratory failure on 2L supplemental O2 at baseline, as well as remote history of breast cancer presents to the hospital with complaints of vomiting, as well as dizziness found to have acute influenza infection as well as subacute infarct abnormal CT brain CT punctate 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 keep on asa 81mg, statin PT - recommending STR, rehab bed pending, dc today if bed available vertigo meclizine prn influenza a infection previously documented that patient uses 2 L of oxygen at baseline, but patient denies using at home completed course of Tamiflu PRN breathing treatment 92% on room air COPD- No exacerbation prn breathing treatments continue home inhaler DVT prophylaxis:? lovenox reason for continued hospitalization:safe disposition Time Spent With Patient Time: Total time managing care of this patient today ____ minutes. Quality Stroke Does the patient have a stroke diagnosis?: No VTE Prior VTE?: No VTE Risk Level:: Medical - low VTE Device Contraindication: N/A - Device Ordered VTE Drug Contraindication: Treatment Not Indicated
[2022-05-20] MEDS: Enoxaparin Sodium 40 MG/0.4 ML SYRINGE SUBCUT (11:25)
[2022-05-20] MEDS: Calcium Carbonate 750 MG TAB.CHEW PO (11:29)
[2022-05-20 11:31] VITALS: BP 111/73; PULSE 82; RESP 12; TEMP 36.5; O2SAT 97
[2022-05-20 15:23] VITALS: BP 128/78; PULSE 78; RESP 18; TEMP 36.6; O2SAT 97
[2022-05-20 19:36] VITALS: BP 127/82; PULSE 83; RESP 18; TEMP 36.8; O2SAT 96
[2022-05-20] MEDS: Atorvastatin Calcium 40 MG TABLET PO (20:05)
[2022-05-21 07:55] VITALS: BP 134/73; PULSE 67; RESP 16; TEMP 36.3; O2SAT 97
[2022-05-21] MEDS: Aspirin Enteric Coated 81 MG TABLET.DR PO (08:55)
[2022-05-21] MEDS: Enoxaparin Sodium 40 MG/0.4 ML SYRINGE SUBCUT (10:39)
[2022-05-21 12:00] VITALS: RESP 18
--- NOTE | 2022-05-21 13:14 | MHC.CM.PN ---
THIS PROPERTY SPECIALIST MET WITH PATIENT AND COMMUNITY HEALTH WORKER ALEX GÓMEZ WITH PATIENT PERMISSION., ALEX WILL BE IN TOMORROW TO WORK WITH PATIENT IN ATTEMPTS TO SECURE [employer]. ALEX'S CONTACT NUMBER IS [phone]
--- NOTE | 2022-05-21 13:34 | HO.PM.IMPN ---
Subjective Subjective Date of Service: 05/21/22 Interval History: Vertigo seems to be improving Denies any chest pain or shortness of breath or abdominal pain Review of Systems Denies?nausea or vomiting No urinary symptoms No reported rash Physical Exam Vital Signs: Vital Signs: Last Vital Signs Temp 97.3 F 05/21/22 07:55 Pulse 67 05/21/22 07:55 Resp 18 05/21/22 12:00 BP 134/73 05/21/22 07:55 Pulse Ox 97 05/21/22 07:55 O2 Del Method 05/21/22 07:55 O2 Flow Rate 2 05/10/22 12:00 Oxygen Flow Rate 2 05/06/22 15:24 BMI result Body Mass Index 24.9 General: AO X 3, no acute distress Resp:? CTA bilateral, on room CVS: S1,S2,RRR GI: +BS, NT, no distention Skin: No rash Neuro:? motor grossly intact Psych: appropriate affect Objective Data Active Medications Acetaminophen (Acetaminophen 325 Mg Tablet) 650 mg PO Q6H PRN PRN Reason: Pain, Mild (Pain Scale 1-3) Last Admin: 05/07/22 20:20 Dose: 650 mg Documented By: YOANA Aspirin (Aspirin Enteric Coated 81 Mg Tablet.Dr) 81 mg PO DAILY [facility] Last Admin: 05/21/22 08:55 Dose: 81 mg Documented By: SWEETIE Atorvastatin Calcium (Atorvastatin Calcium 40 Mg Tablet) 40 mg PO BEDTIME [facility] Last Admin: 05/20/22 20:05 Dose: 40 mg Documented By: YOANA Calcium Carbonate (Calcium Carbonate 750 Mg Tab.Chew) 750 mg PO Q4H PRN PRN Reason: Heartburn Last Admin: 05/20/22 11:29 Dose: 750 mg Documented By: ARLETORRAlfredo Docusate Sodium (Docusate Sodium 100 Mg Capsule) 100 mg PO DAILY [facility] Last Admin: 05/21/22 08:21 Dose: Not Given Documented By: SWEETIE Non-Admin Reason: Patient Refused Enoxaparin Sodium (Enoxaparin Sodium 40 Mg/0.4 Ml Syringe) 40 mg SUBCUT Q24H [facility] Last Admin: 05/21/22 10:39 Dose: 40 mg Documented By: SWEETIE Fluticasone Propionate (Fluticasone Propionate Nasal 16 Gm [place]) 2 spray NOSTRIL-B DAILY [facility] Last Admin: 05/21/22 08:21 Dose: Not Given Documented By: SWEETIE Non-Admin Reason: Patient Refused Hydrocodone Bit/Homatropine Methylb (Hydrocodone/Homat 5/1.5/5 Ml 5 Ml Syrup) 5 ml PO Q4H PRN PRN Reason: Cough Last Admin: 05/13/22 05:37 Dose: 5 ml Documented By: JEROME Meclizine HCl (Meclizine Hcl 12.5 Mg Tablet) 12.5 mg PO Q8H PRN PRN Reason: vertigo Last Admin: 05/09/22 07:31 Dose: 12.5 mg Documented By: OSVALDO-RIVSIRI Ondansetron HCl (Ondansetron Hcl 4 Mg/2 Ml Vial) 4 mg IVPUSH Q8H PRN PRN Reason: Nausea and Vomiting Last Admin: 05/11/22 02:22 Dose: 4 mg Documented By: CABRERA Pharmacy Consult (Consult Rx Perform Med Rec) 1 each MISCELLANE ONCE PRN PRN Reason: Consult order Polyethylene Glycol (Polyethylene Glycol 3350 17 Gm Powd.Pack) 17 gm PO DAILY [facility] Last Admin: 05/21/22 08:21 Dose: Not Given Documented By: SWEETIE Non-Admin Reason: Patient Refused Labs CBC & Chem 7: 05/09/22 06:24 05/09/22 06:24 Assessment and Plan (1) Vertigo: Status: Acute (2) Influenza A: Status: Acute (3) CVA (cerebral vascular accident): Status: Acute Plan 82-year-old female with past medical history of COPD, chronic respiratory failure on 2L supplemental O2 at baseline, as well as remote history of breast cancer presents to the hospital with complaints of vomiting, as well as dizziness found to have acute influenza infection as well as subacute infarct ?abnormal CT brain CT punctate 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 No acute infarct or hemorrhage on MRI neuro appreciated - felt to be incidental? 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 ?keep on asa 81mg, statin PT - recommending STR, rehab bed pending, dc today if bed available vertigo meclizine prn influenza a infection previously documented that patient uses 2 L of oxygen at baseline, but patient denies using at home completed course of Tamiflu PRN breathing treatment 92% on room air COPD- No exacerbation prn breathing treatments continue home inhaler DVT prophylaxis:? lovenox reason for continued hospitalization:safe disposition Time Spent With Patient Time: Total time managing care of this patient today ____ minutes. Quality Stroke Does the patient have a stroke diagnosis?: No VTE Prior VTE?: No VTE Risk Level:: Medical - low VTE Device Contraindication: N/A - Device Ordered VTE Drug Contraindication: Treatment Not Indicated
[2022-05-21 15:15] VITALS: BP 121/86; PULSE 88; RESP 20; TEMP 36.7; O2SAT 96
[2022-05-21 19:09] VITALS: BP 126/76; PULSE 79; RESP 20; TEMP 36.9; O2SAT 96
[2022-05-21] MEDS: Atorvastatin Calcium 40 MG TABLET PO (20:00)
[2022-05-22 05:16] VITALS: BP 120/62; PULSE 66; RESP 18; TEMP 36.7; O2SAT 94
[2022-05-22 08:00] VITALS: BP 136/81; PULSE 74; RESP 17; TEMP 36.4; O2SAT 96
[2022-05-22] MEDS: Aspirin Enteric Coated 81 MG TABLET.DR PO (09:00)
[2022-05-22] MEDS: Enoxaparin Sodium 40 MG/0.4 ML SYRINGE SUBCUT (11:04)
--- NOTE | 2022-05-22 14:39 | MHC.CM.PN ---
per [place] pt ready for dc director digital communications will be in to see pt re swivhing to [place]
[2022-05-22 15:58] VITALS: BP 139/88; PULSE 85; RESP 17; TEMP 37.5; O2SAT 97
--- NOTE | 2022-05-22 15:59 | P.PNIM_ITS ---
Subjective Subjective Date of Service: 05/22/22 Interval History: Vertigo seems to be improving Denies any chest pain or shortness of breath or abdominal pain Review of Systems Denies?nausea or vomiting No urinary symptoms No reported rash Physical Exam Vital Signs: Vital Signs: Last Vital Signs Temp 97.5 F 05/22/22 08:00 Pulse 74 05/22/22 08:00 Resp 17 05/22/22 08:00 BP 136/81 05/22/22 08:00 Pulse Ox 96 05/22/22 08:00 O2 Del Method 05/22/22 08:00 O2 Flow Rate 2 05/10/22 12:00 Oxygen Flow Rate 2 05/06/22 15:24 BMI result Body Mass Index 24.9 ?General: AO X 3, no acute distress Resp:? CTA bilateral, on room CVS: S1,S2,RRR GI: +BS, NT, no distention Skin: No rash Neuro:? motor grossly intact Psych: appropriate affect Objective Data Active Medications Acetaminophen (Acetaminophen 325 Mg Tablet) 650 mg PO Q6H PRN PRN Reason: Pain, Mild (Pain Scale 1-3) Last Admin: 05/07/22 20:20 Dose: 650 mg Documented By: YOANA Aspirin (Aspirin Enteric Coated 81 Mg Tablet.Dr) 81 mg PO DAILY [facility] Last Admin: 05/22/22 09:00 Dose: 81 mg Documented By: MARCOS Atorvastatin Calcium (Atorvastatin Calcium 40 Mg Tablet) 40 mg PO BEDTIME [facility] Last Admin: 05/21/22 20:00 Dose: 40 mg Documented By: ENEDELIA Calcium Carbonate (Calcium Carbonate 750 Mg Tab.Chew) 750 mg PO Q4H PRN PRN Reason: Heartburn Last Admin: 05/20/22 11:29 Dose: 750 mg Documented By: JACKY Docusate Sodium (Docusate Sodium 100 Mg Capsule) 100 mg PO DAILY [facility] Last Admin: 05/22/22 09:00 Dose: Not Given Documented By: MARCOS Non-Admin Reason: loose BM Enoxaparin Sodium (Enoxaparin Sodium 40 Mg/0.4 Ml Syringe) 40 mg SUBCUT Q24H [facility] Last Admin: 05/22/22 11:04 Dose: 40 mg Documented By: MARCOS Fluticasone Propionate (Fluticasone Propionate Nasal 16 Gm [place]) 2 spray NO STRIL-B DAILY [facility] Last Admin: 05/22/22 09:01 Dose: Not Given Documented By: MARCOS Non-Admin Reason: Patient Refused Meclizine HCl (Meclizine Hcl 12.5 Mg Tablet) 12.5 mg PO Q8H PRN PRN Reason: vertigo Last Admin: 05/09/22 07:31 Dose: 12.5 mg Documented By: MARCOS Ondansetron HCl (Ondansetron Hcl 4 Mg/2 Ml Vial) 4 mg IVPUSH Q8H PRN PRN Reason: Nausea and Vomiting Last Admin: 05/11/22 02:22 Dose: 4 mg Documented By: CABRERA Pharmacy Consult (Consult Rx Perform Med Rec) 1 each MISCELLANE ONCE PRN PRN Reason: Consult order Polyethylene Glycol (Polyethylene Glycol 3350 17 Gm Powd.Pack) 17 gm PO DAILY [facility] Last Admin: 05/22/22 09:00 Dose: Not Given Documented By: MARCOS Non-Admin Reason: Loose BM Labs CBC & Chem 7: 05/09/22 06:24 05/09/22 06:24 Assessment and Plan (1) Vertigo: Status: Acute (2) Influenza A: Status: Acute (3) CVA (cerebral vascular accident): Status: Acute Plan 82-year-old female with past medical history of COPD, chronic respiratory failure on 2L supplemental O2 at baseline, as well as remote history of breast cancer presents to the hospital with complaints of vomiting, as well as dizziness found to have acute influenza infection as well as subacute infarct ?abnormal CT brain CT punctate 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 No acute infarct or hemorrhage on MRI neuro appreciated - felt to be incidental? 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 ?keep on asa 81mg, statin PT - recommending STR, rehab bed pending, dc when bed available vertigo meclizine prn influenza a infection previously documented that patient uses 2 L of oxygen at baseline, but patient denies using at home completed course of Tamiflu PRN breathing treatment 92% on room air COPD- No exacerbation prn breathing treatments continue home inhaler DVT prophylaxis:? lovenox reason for continued hospitalization:safe disposition Time Spent With Patient Time: Total time managing care of this patient today ____ minutes. Quality Stroke Does the patient have a stroke diagnosis?: No VTE Prior VTE?: No VTE Risk Level:: Medical - low VTE Device Contraindication: N/A - Device Ordered VTE Drug Contraindication: Treatment Not Indicated
[2022-05-22 20:00] VITALS: BP 133/85; PULSE 93; RESP 18; TEMP 37; O2SAT 97
[2022-05-22] MEDS: Atorvastatin Calcium 40 MG TABLET PO (20:34)
[2022-05-23 05:51] VITALS: BP 142/79; PULSE 68; RESP 18; TEMP 36.8; O2SAT 96
[2022-05-23] MEDS: Aspirin Enteric Coated 81 MG TABLET.DR PO (07:25)
[2022-05-23 07:41] VITALS: BP 124/70; PULSE 63; RESP 18; TEMP 36.5; O2SAT 97
[2022-05-23] MEDS: Enoxaparin Sodium 40 MG/0.4 ML SYRINGE SUBCUT (11:05)
--- NOTE | 2022-05-23 13:57 | P.PNIM_ITS ---
Subjective Subjective Date of Service: 05/23/22 Interval History: Vertigo seems to be improved. Review of Systems Denies?nausea or vomiting No urinary symptoms No reported rash Physical Exam Vital Signs: Vital Signs: Last Vital Signs Temp 97.7 F 05/23/22 07:41 Pulse 63 05/23/22 07:41 Resp 18 05/23/22 07:41 BP 124/70 05/23/22 07:41 Pulse Ox 97 05/23/22 07:41 O2 Del Method 05/23/22 07:41 O2 Flow Rate 2 05/10/22 12:00 Oxygen Flow Rate 2 05/06/22 15:24 BMI result Body Mass Index 24.9 ?General: AO X 3, no acute distress Resp:? CTA bilateral, on room CVS: S1,S2,RRR GI: +BS, NT, no distention Skin: No rash Neuro:? motor grossly intact Psych: appropriate affect Objective Data Active Medications Acetaminophen (Acetaminophen 325 Mg Tablet) 650 mg PO Q6H PRN PRN Reason: Pain, Mild (Pain Scale 1-3) Last Admin: 05/07/22 20:20 Dose: 650 mg Documented By: YOANA Aspirin (Aspirin Enteric Coated 81 Mg Tablet.Dr) 81 mg PO DAILY [facility] Last Admin: 05/23/22 07:25 Dose: 81 mg Documented By: IFEOMA Atorvastatin Calcium (Atorvastatin Calcium 40 Mg Tablet) 40 mg PO BEDTIME [facility] Last Admin: 05/22/22 20:34 Dose: 40 mg Documented By: OSVALDO-RIVLA Calcium Carbonate (Calcium Carbonate 750 Mg Tab.Chew) 750 mg PO Q4H PRN PRN Reason: Heartburn Last Admin: 05/20/22 11:29 Dose: 750 mg Documented By: JACKY Docusate Sodium (Docusate Sodium 100 Mg Capsule) 100 mg PO DAILY [facility] Last Admin: 05/23/22 07:28 Dose: Not Given Documented By: IFEOMA Non-Admin Reason: Patient Refused Enoxaparin Sodium (Enoxaparin Sodium 40 Mg/0.4 Ml Syringe) 40 mg SUBCUT Q24H [facility] Last Admin: 05/23/22 11:05 Dose: 40 mg Documented By: IFEOMA Fluticasone Propionate (Fluticasone Propionate Nasal 16 Gm [place]) 2 spray NOSTRIL-B DAILY [facility] Last Admin: 05/23/22 07:28 Dose: Not Given Documented By: IFEOMA Non-Admin Reason: Patient Refused Meclizine HCl (Meclizine Hcl 12.5 Mg Tablet) 12.5 mg PO Q8H PRN PRN Reason: vertigo Last Admin: 05/09/22 07:31 Dose: 12.5 mg Documented By: MARCOS Ondansetron HCl (Ondansetron Hcl 4 Mg/2 Ml Vial) 4 mg IVPUSH Q8H PRN PRN Reason: Nausea and Vomiting Last Admin: 05/11/22 02:22 Dose: 4 mg Documented By: CABRERA Pharmacy Consult (Consult Rx Perform Med Rec) 1 each MISCELLANE ONCE PRN PRN Reason: Consult order Polyethylene Glycol (Polyethylene Glycol 3350 17 Gm Powd.Pack) 17 gm PO DAILY [facility] Last Admin: 05/23/22 07:28 Dose: Not Given Documented By: IFEOMA Non-Admin Reason: Patient Refused Labs CBC & Chem 7: 05/09/22 06:24 05/09/22 06:24 Assessment and Plan (1) Vertigo: Status: Acute Plan 82-year-old female with past medical history of COPD, chronic respiratory failure on 2L supplemental O2 at baseline, as well as remote history of breast cancer presents to the hospital with complaints of vomiting, as well as dizziness found to have acute influenza infection as well as subacute infarct ?abnormal CT brain CT punctate 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 No acute infarct or hemorrhage on MRI neuro appreciated - felt to be incidental? 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 ?keep on asa 81mg, statin PT - recommending STR, rehab bed pending, dc when? bed available vertigo meclizine prn influenza a infection previously documented that patient uses 2 L of oxygen at baseline, but patient d enies using at home completed course of Tamiflu PRN breathing treatment 92% on room air COPD- No exacerbation prn breathing treatments continue home inhaler DVT prophylaxis:? lovenox reason for continued hospitalization:safe disposition,added covid for placement possible in am. Time Spent With Patient Time: Total time managing care of this patient today ____ minutes. Quality Stroke Does the patient have a stroke diagnosis?: No VTE Prior VTE?: No VTE Risk Level:: Medical - low VTE Device Contraindication: N/A - Device Ordered VTE Drug Contraindication: Treatment Not Indicated
[2022-05-23 14:16] LABS: COVID-19 Test Negative (Negative); IDNOW Serial# BCCEAD1C
[2022-05-23 15:24] VITALS: BP 131/84; PULSE 86; RESP 18; TEMP 36.8; O2SAT 96
--- NOTE | 2022-05-23 15:49 | MHC.CM.PN ---
[facility] GOING FOR ON [facility] AUTHORIZATION TO ADMIT. HCP ALEX [phone] AWARE AND IN AGREEMENT WITH PLAN. CASE MANAGEMENT FOLLOWING FOR AUTH
[2022-05-23 19:34] VITALS: BP 131/80; PULSE 75; RESP 19; TEMP 36.6; O2SAT 96
[2022-05-23] MEDS: Atorvastatin Calcium 40 MG TABLET PO (21:07)
[2022-05-24 04:15] VITALS: BP 140/81; PULSE 70; RESP 18; TEMP 36.3; O2SAT 95
[2022-05-24] MEDS: Aspirin Enteric Coated 81 MG TABLET.DR PO (09:33)
[2022-05-24 10:55] VITALS: BP 140/81; PULSE 70; O2SAT 95
--- NOTE | 2022-05-24 11:35 | P.PNIM_ITS ---
Subjective Subjective Date of Service: 05/25/22 Interval History: cva Review of Systems Denies?nausea or vomiting No urinary symptoms No reported rash Physical Exam Vital Signs: Vital Signs: Last Vital Signs Temp 97.4 F 05/24/22 04:15 Pulse 70 05/24/22 04:15 Resp 18 05/24/22 04:15 BP 140/81 H 05/24/22 04:15 Pulse Ox 95 05/24/22 04:15 O2 Del Method 05/24/22 04:15 O2 Flow Rate 2 05/10/22 12:00 Oxygen Flow Rate 2 05/06/22 15:24 BMI result Body Mass Index 24.9 ?General: AO X 3, no acute distress Resp:? CTA bilateral, on room CVS: S1,S2,RRR GI: +BS, NT, no distention Skin: No rash Neuro:? motor grossly intact Psych: appropriate affect Objective Data Active Medications Acetaminophen (Acetaminophen 325 Mg Tablet) 650 mg PO Q6H PRN PRN Reason: Pain, Mild (Pain Scale 1-3) Last Admin: 05/07/22 20:20 Dose: 650 mg Documented By: YOANA Aspirin (Aspirin Enteric Coated 81 Mg Tablet.Dr) 81 mg PO DAILY [facility] Last Admin: 05/24/22 09:33 Dose: 81 mg Documented By: IFEOMA Atorvastatin Calcium (Atorvastatin Calcium 40 Mg Tablet) 40 mg PO BEDTIME [facility] Last Admin: 05/23/22 21:07 Dose: 40 mg Documented By: MORRINL Calcium Carbonate (Calcium Carbonate 750 Mg Tab.Chew) 750 mg PO Q4H PRN PRN Reason: Heartburn Last Admin: 05/20/22 11:29 Dose: 750 mg Documented By: JACKY Docusate Sodium (Docusate Sodium 100 Mg Capsule) 100 mg PO DAILY [facility] Last Admin: 05/24/22 09:43 Dose: Not Given Documented By: IFEOMA Non-Admin Reason: Patient Refused Enoxaparin Sodium (Enoxaparin Sodium 40 Mg/0.4 Ml Syringe) 40 mg SUBCUT Q24H [facility] Last Admin: 05/23/22 11:05 Dose: 40 mg Documented By: IFEOMA Fluticasone Propionate (Fluticasone Propionate Nasal 16 Gm [place]) 2 spray NOSTRIL-B DAILY [facility] Last Admin: 05/24/22 09:43 Dose: Not Given Documented By: IFEOMA Non-Admin Reason: Patient Refused Meclizine HCl (Meclizine Hcl 12.5 Mg Tablet) 12.5 mg PO Q8H PRN PRN Reason: vertigo Last Admin: 05/09/22 07:31 Dose: 12.5 mg Documented By: MARCOS Ondansetron HCl (Ondansetron Hcl 4 Mg/2 Ml Vial) 4 mg IVPUSH Q8H PRN PRN Reason: Nausea and Vomiting Last Admin: 05/11/22 02:22 Dose: 4 mg Documented By: CABRERA Pharmacy Consult (Consult Rx Perform Med Rec) 1 each MISCELLANE ONCE PRN PRN Reason: Consult order Polyethylene Glycol (Polyethylene Glycol 3350 17 Gm Powd.Pack) 17 gm PO DAILY [facility] Last Admin: 05/24/22 09:43 Dose: Not Given Documented By: IFEOMA Non-Admin Reason: Patient Refused Labs CBC & Chem 7: 05/09/22 06:24 05/09/22 06:24 Labs: Laboratory Results - last 24 hr 05/23/22 13:51 COVID-19 ([facility]) Negative COVID-19 Clin Com See Note Assessment and Plan (1) Vertigo: Status: Acute Plan 82-year-old female with past medical history of COPD, chronic respiratory failure on 2L supplemental O2 at baseline, as well as remote history of breast cancer presents to the hospital with complaints of vomiting, as well as dizziness found to have acute influenza infection as well as subacute infarct ?abnormal CT brain CT punctate 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 No acute infarct or hemorrhage on MRI neuro appreciated - felt to be incidental? 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 ?keep on asa 81mg, statin PT - recommending STR, rehab bed pending, dc when? bed available vertigo meclizine prn influenza a infection previously documented that patient uses 2 L of oxygen at baseline, but patient denies using at home completed course of Tamiflu PRN breathing treatment 92% on room air COPD- No exacerbation prn breathing treatments continue home inhaler DVT prophylaxis:? lovenox reason for continued hospitalization:safe disposition Time Spent With Patient Time: Total time managing care of this patient today ____ minutes. Quality Stroke Does the patient have a stroke diagnosis?: No VTE Prior VTE?: No VTE Risk Level:: Medical - low VTE Device Contraindication: N/A - Device Ordered VTE Drug Contraindication: Treatment Not Indicated
[2022-05-24] MEDS: Enoxaparin Sodium 40 MG/0.4 ML SYRINGE SUBCUT (12:26)
--- NOTE | 2022-05-24 14:04 | MHC.CM.PN ---
[facility] NO LONGER ABLE TO OFFER A BED. COMMUNITY CARE WORKER (ALEX [phone]) AWARE. PLAN WILL BE HOME WITH A REFERRAL TO [facility]. CASE MANAGEMENT ASKING FOR A CALL BACK TO DETERMINE IF PATIENT HAS HER APARTMENT KEYS AND IF SHE NEEDS AN AMBULANCE TRANSPORT HOME.
[2022-05-24 15:56] VITALS: BP 132/79; PULSE 73; RESP 17; TEMP 36.7; O2SAT 97
[2022-05-24 20:00] VITALS: BP 109/74; PULSE 79; RESP 16; TEMP 36.5; O2SAT 94
[2022-05-24] MEDS: Atorvastatin Calcium 40 MG TABLET PO (20:37)
[2022-05-25 03:35] VITALS: BP 118/78; PULSE 74; RESP 18; TEMP 36.4; O2SAT 98
[2022-05-25 07:11] VITALS: BP 118/67; PULSE 73; RESP 18; TEMP 36.1; O2SAT 95
[2022-05-25] MEDS: Aspirin Enteric Coated 81 MG TABLET.DR PO (08:55)
[2022-05-25] MEDS: Enoxaparin Sodium 40 MG/0.4 ML SYRINGE SUBCUT (10:19)
--- NOTE | 2022-05-25 12:48 | HO.PM.IMPN ---
Subjective Subjective Date of Service: 05/26/22 Interval History: cva Review of Systems Denies?nausea or vomiting No urinary symptoms No reported rash Physical Exam Vital Signs: Vital Signs: Last Vital Signs Temp 97 F 05/25/22 07:11 Pulse 73 05/25/22 07:11 Resp 18 05/25/22 07:11 BP 118/67 05/25/22 07:11 Pulse Ox 95 05/25/22 07:11 O2 Del Method 05/25/22 07:11 O2 Flow Rate 2 05/10/22 12:00 Oxygen Flow Rate 2 05/06/22 15:24 BMI result Body Mass Index 24.9 General: AO X 3, no acute distress Resp:? CTA bilateral, on room CVS: S1,S2,RRR GI: +BS, NT, no distention Skin: No rash Neuro:? motor grossly intact Psych: appropriate affect Objective Data Active Medications Acetaminophen (Acetaminophen 325 Mg Tablet) 650 mg PO Q6H PRN PRN Reason: Pain, Mild (Pain Scale 1-3) Last Admin: 05/07/22 20:20 Dose: 650 mg Documented By: YOANA Aspirin (Aspirin Enteric Coated 81 Mg Tablet.Dr) 81 mg PO DAILY [facility] Last Admin: 05/25/22 08:55 Dose: 81 mg Documented By: REBECCA Atorvastatin Calcium (Atorvastatin Calcium 40 Mg Tablet) 40 mg PO BEDTIME [facility] Last Admin: 05/24/22 20:37 Dose: 40 mg Documented By: CHIN Calcium Carbonate (Calcium Carbonate 750 Mg Tab.Chew) 750 mg PO Q4H PRN PRN Reason: Heartburn Last Admin: 05/20/22 11:29 Dose: 750 mg Documented By: JACKY Docusate Sodium (Docusate Sodium 100 Mg Capsule) 100 mg PO DAILY [facility] Last Admin: 05/25/22 08:55 Dose: Not Given Documented By: REBECCA Non-Admin Reason: Patient Refused Enoxaparin Sodium (Enoxaparin Sodium 40 Mg/0.4 Ml Syringe) 40 mg SUBCUT Q24H [facility] Last Admin: 05/25/22 10:19 Dose: 40 mg Documented By: REBECCA Fluticasone Propionate (Fluticasone Propionate Nasal 16 Gm [place]) 2 spray NOSTRIL-B DAILY [facility] Last Admin: 05/25/22 08:56 Dose: Not Given Documented By: REBECCA Non-Admin Reason: Patient Refused Meclizine HCl (Meclizine Hcl 12.5 Mg Tablet) 12.5 mg PO Q8H PRN PRN Reason: vertigo Last Admin: 05/09/22 07:31 Dose: 12.5 mg Documented By: MARCOS Ondansetron HCl (Ondansetron Hcl 4 Mg/2 Ml Vial) 4 mg IVPUSH Q8H PRN PRN Reason: Nausea and Vomiting Last Admin: 05/11/22 02:22 Dose: 4 mg Documented By: CABRERA Pharmacy Consult (Consult Rx Perform Med Rec) 1 each MISCELLANE ONCE PRN PRN Reason: Consult order Polyethylene Glycol (Polyethylene Glycol 3350 17 Gm Powd.Pack) 17 gm PO DAILY [facility] Last Admin: 05/25/22 08:55 Dose: Not Given Documented By: REBECCA Non-Admin Reason: Patient Refused Labs CBC & Chem 7: 05/09/22 06:24 05/09/22 06:24 Assessment and Plan (1) CVA (cerebral vascular accident): Status: Acute Plan 82-year-old female with past medical history of COPD, chronic respiratory failure on 2L supplemental O2 at baseline, as well as remote history of breast cancer presents to the hospital with complaints of vomiting, as well as dizziness found to have acute influenza infection as well as subacute infarct ?abnormal CT brain CT punctate 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 No acute infarct or hemorrhage on MRI neuro appreciated - felt to be incidental? 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 ?keep on asa 81mg, statin PT - recommending STR, rehab bed pending, dc when? bed available vertigo meclizine prn influenza a infection previously documented that patient uses 2 L of oxygen at baseline, but patient denies using at home completed course of Tamiflu PRN breathing treatment 92% on room air COPD- No exacerbation prn breathing treatments continue home inhaler DVT prophylaxis:? lovenox reason for continued hospitalization:safe disposition Time Spent With Patient Time: Total time managing care of this patient today ____ minutes. Quality Stroke Does the patient have a stroke diagnosis?: No VTE Prior VTE?: No VTE Risk Level:: Medical - low VTE Device Contraindication: N/A - Device Ordered VTE Drug Contraindication: Treatment Not Indicated
[2022-05-25 16:00] VITALS: BP 117/69; PULSE 76; RESP 16; TEMP 36.7; O2SAT 96
[2022-05-25 20:25] VITALS: BP 132/80; PULSE 76; RESP 19; TEMP 37; O2SAT 96
[2022-05-25] MEDS: Atorvastatin Calcium 40 MG TABLET PO (20:27)
[2022-05-26 04:48] VITALS: BP 133/80; PULSE 66; RESP 16; O2SAT 94
[2022-05-26 07:26] VITALS: BP 116/62; PULSE 65; RESP 18; TEMP 36.4; O2SAT 95
[2022-05-26] MEDS: Aspirin Enteric Coated 81 MG TABLET.DR PO (09:05)
[2022-05-26] MEDS: Enoxaparin Sodium 40 MG/0.4 ML SYRINGE SUBCUT (09:05)
--- NOTE | 2022-05-26 14:28 | HO.PM.IMPN ---
Subjective Subjective Date of Service: 05/26/22 Interval History: cva Review of Systems Denies?nausea or vomiting No urinary symptoms No reported rash Physical Exam Vital Signs: Vital Signs: Last Vital Signs Temp 97.6 F 05/26/22 07:26 Pulse 65 05/26/22 07:26 Resp 18 05/26/22 07:26 BP 116/62 05/26/22 07:26 Pulse Ox 95 05/26/22 07:26 O2 Del Method 05/26/22 07:26 O2 Flow Rate 2 05/10/22 12:00 Oxygen Flow Rate 2 05/06/22 15:24 BMI result Body Mass Index 24.9 General: AO X 3, no acute distress Resp:? CTA bilateral, on room CVS: S1,S2,RRR GI: +BS, NT, no distention Skin: No rash Neuro:? motor grossly intact Psych: appropriate affect Objective Data Active Medications Acetaminophen (Acetaminophen 325 Mg Tablet) 650 mg PO Q6H PRN PRN Reason: Pain, Mild (Pain Scale 1-3) Last Admin: 05/07/22 20:20 Dose: 650 mg Documented By: YOANA Aspirin (Aspirin Enteric Coated 81 Mg Tablet.Dr) 81 mg PO DAILY [facility]S [facility] Last Admin: 05/26/22 09:05 Dose: 81 mg Documented By: IFEOMA Atorvastatin Calcium (Atorvastatin Calcium 40 Mg Tablet) 40 mg PO BEDTIME [facility]S [facility] Last Admin: 05/25/22 20:27 Dose: 40 mg Documented By: DANISH Calcium Carbonate (Calcium Carbonate 750 Mg Tab.Chew) 750 mg PO Q4H PRN PRN Reason: Heartburn Last Admin: 05/20/22 11:29 Dose: 750 mg Documented By: JACKY Docusate Sodium (Docusate Sodium 100 Mg Capsule) 100 mg PO DAILY [facility] 234 BEDS AT [facility] Last Admin: 05/26/22 09:07 Dose: Not Given Documented By: IFEOMA Non-Admin Reason: Patient Refused Enoxaparin Sodium (Enoxaparin Sodium 40 Mg/0.4 Ml Syringe) 40 mg SUBCUT Q24H [facility]S [facility]CLUDE 234 BEDS AT [facility] Last Admin: 05/26/22 09:05 Dose: 40 mg Documented By: IFEOMA Fluticasone Propionate (Fluticasone Propionate Nasal 16 Gm [place]) 2 spray NOSTRIL-B DAILY [facility] 234 BEDS AT [facility] Last Admin: 05/26/22 09:07 Dose: Not Given Documented By: IFEOMA Non-Admin Reason: Patient Refused Meclizine HCl (Meclizine Hcl 12.5 Mg Tablet) 12.5 mg PO Q8H PRN PRN Reason: vertigo Last Admin: 05/09/22 07:31 Dose: 12.5 mg Documented By: MARCOS Ondansetron HCl (Ondansetron Hcl 4 Mg/2 Ml Vial) 4 mg IVPUSH Q8H PRN PRN Reason: Nausea and Vomiting Last Admin: 05/11/22 02:22 Dose: 4 mg Documented By: CABRERA Pharmacy Consult (Consult Rx Perform Med Rec) 1 each MISCELLANE ONCE PRN PRN Reason: Consult order Polyethylene Glycol (Polyethylene Glycol 3350 17 Gm Powd.Pack) 17 gm PO DAILY [facility] Last Admin: 05/26/22 09:07 Dose: Not Given Documented By: IFEOMA Non-Admin Reason: Patient Refused Labs CBC & Chem 7: 05/09/22 06:24 05/09/22 06:24 Assessment and Plan (1) CVA (cerebral vascular accident): Status: Acute Plan 82-year-old female with past medical history of COPD, chronic respiratory failure on 2L supplemental O2 at baseline, as well as remote history of breast cancer presents to the hospital with complaints of vomiting, as well as dizziness found to have acute influenza infection as well as subacute infarct ?abnormal CT brain CT punctate 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 No acute infarct or hemorrhage on MRI neuro appreciated - felt to be incidental? 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 ?keep on asa 81mg, statin PT - recommending STR, rehab bed pending, dc when? bed available vertigo meclizine prn influenza a infection previously documented that patient uses 2 L of oxygen at baseline, but patient denies using at home completed course of Tamiflu PRN breathing treatment 92% on room air COPD- No exacerbation prn breathing treatments continue home inhaler DVT prophylaxis:? lovenox reason for continued hospitalization:safe disposition Time Spent With Patient Time: Total time managing care of this patient today ____ minutes. Quality Stroke Does the patient have a stroke diagnosis?: No VTE Prior VTE?: No VTE Risk Level:: Medical - low VTE Device Contraindication: N/A - Device Ordered VTE Drug Contraindication: Treatment Not Indicated
[2022-05-26 15:30] VITALS: BP 138/85; PULSE 78; RESP 16; TEMP 36.8; O2SAT 96
[2022-05-26 20:00] VITALS: BP 128/83; PULSE 80; RESP 18; TEMP 36.9; O2SAT 97
[2022-05-26] MEDS: Atorvastatin Calcium 40 MG TABLET PO (20:28)
[2022-05-27 05:24] VITALS: BP 133/82; PULSE 67; RESP 16; TEMP 36.4; O2SAT 96
[2022-05-27 08:00] VITALS: BP 135/79; PULSE 71; RESP 16; TEMP 36.6; O2SAT 97
[2022-05-27] MEDS: Aspirin Enteric Coated 81 MG TABLET.DR PO (08:41)
--- NOTE | 2022-05-27 09:50 | P.PNIM_ITS ---
Subjective Subjective Date of Service: 05/27/22 Interval History: cva Review of Systems Denies?nausea or vomiting or urinary symptoms no dizziness Physical Exam Vital Signs: Vital Signs: Last Vital Signs Temp 97.8 F 05/27/22 08:00 Pulse 71 05/27/22 08:00 Resp 16 05/27/22 08:00 BP 135/79 05/27/22 08:00 Pulse Ox 97 05/27/22 08:00 O2 Del Method 05/27/22 08:00 O2 Flow Rate 2 05/10/22 12:00 Oxygen Flow Rate 2 05/06/22 15:24 BMI result Body Mass Index 24.9 General: AO X 3, no acute distress Resp:? CTA bilateral, on room CVS: S1,S2,RRR GI: +BS, NT, no distention Skin: No rash Neuro:? motor grossly intact Psych: appropriate affect Objective Data Active Medications Acetaminophen (Acetaminophen 325 Mg Tablet) 650 mg PO Q6H PRN PRN Reason: Pain, Mild (Pain Scale 1-3) Last Admin: 05/07/22 20:20 Dose: 650 mg Documented By: YOANA Aspirin (Aspirin Enteric Coated 81 Mg Tablet.) 81 mg PO DAILY [facility] Last Admin: 05/27/22 08:41 Dose: 81 mg Documented By: IFEOMA Atorvastatin Calcium (Atorvastatin Calcium 40 Mg Tablet) 40 mg PO BEDTIME [facility] Last Admin: 05/26/22 20:28 Dose: 40 mg Documented By: DANISH Calcium Carbonate (Calcium Carbonate 750 Mg Tab.Chew) 750 mg PO Q4H PRN PRN Reason: Heartburn Last Admin: 05/20/22 11:29 Dose: 750 mg Documented By: JACKY Docusate Sodium (Docusate Sodium 100 Mg Capsule) 100 mg PO DAILY [facility] Last Admin: 05/27/22 08:41 Dose: Not Given Documented By: IFEOMA Non-Admin Reason: Patient Refused Enoxaparin Sodium (Enoxaparin Sodium 40 Mg/0.4 Ml Syringe) 40 mg SUBCUT Q24H [facility] Last Admin: 05/26/22 09:05 Dose: 40 mg Documented By: IFEOMA Fluticasone Propionate (Fluticasone Propionate Nasal 16 Gm [place]) 2 spray NOSTRIL-B DAILY [facility] Last Admin: 05/27/22 08:41 Dose: Not Given Documented By: IFEOMA Non-Admin Reason: Patient Refused Meclizine HCl (Meclizine Hcl 12.5 Mg Tablet) 12.5 mg PO Q8H PRN PRN Reason: vertigo Last Admin: 05/09/22 07:31 Dose: 12.5 mg Documented By: MARCOS Ondansetron HCl (Ondansetron Hcl 4 Mg/2 Ml Vial) 4 mg IVPUSH Q8H PRN PRN Reason: Nausea and Vomiting Last Admin: 05/11/22 02:22 Dose: 4 mg Documented By: CABRERA Pharmacy Consult (Consult Rx Perform Med Rec) 1 each MISCELLANE ONCE PRN PRN Reason: Consult order Polyethylene Glycol (Polyethylene Glycol 3350 17 Gm Powd.Pack) 17 gm PO DAILY [facility] Last Admin: 05/27/22 08:42 Dose: Not Given Documented By: IFEOMA Non-Admin Reason: Patient Refused Labs CBC & Chem 7: 05/09/22 06:24 05/09/22 06:24 Assessment and Plan (1) CVA (cerebral vascular accident): Status: Acute Plan 82-year-old female with past medical history of COPD, chronic respiratory failure on 2L supplemental O2 at baseline, as well as remote history of breast cancer presents to the hospital with complaints of vomiting, as well as dizziness found to have acute influenza infection as well as subacute infarct ?abnormal CT brain CT punctate 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 No acute infarct or hemorrhage on MRI neuro appreciated - felt to be incidental? 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 ?keep on asa 81mg, statin PT - recommending STR, rehab bed pending, dc when? bed available vertigo meclizine prn influenza a infection previously documented that patient uses 2 L of oxygen at baseline, but patient denies using at home completed course of Tamiflu PRN breathing treatment 92% on room air COPD- No exacerbation prn breathing treatments continue home inhaler DVT prophylaxis:? lovenox reason for continued hospitalization:safe disposition Time Spent With Patient Time: Total time managing care of this patient today ____ minutes. Quality Stroke Does the patient have a stroke diagnosis?: No VTE Prior VTE?: No VTE Risk Level:: Medical - low VTE Device Contraindication: N/A - Device Ordered VTE Drug Contraindication: Treatment Not Indicated
[2022-05-27] MEDS: Enoxaparin Sodium 40 MG/0.4 ML SYRINGE SUBCUT (11:22)
[2022-05-27 15:18] VITALS: BP 140/85; PULSE 84; RESP 16; TEMP 37.2; O2SAT 96
[2022-05-27 18:59] VITALS: BP 134/88; PULSE 89; RESP 16; TEMP 36.1; O2SAT 96
[2022-05-27] MEDS: Atorvastatin Calcium 40 MG TABLET PO (20:36)
[2022-05-28 08:00] VITALS: BP 142/80; PULSE 67; RESP 18; TEMP 36.9; O2SAT 96
[2022-05-28] MEDS: Aspirin Enteric Coated 81 MG TABLET.DR PO (08:17)
[2022-05-28] MEDS: polyethylene glycoL 3350 17 GM POWD.PACK PO (08:17)
[2022-05-28] MEDS: Docusate Sodium 100 MG CAPSULE PO (08:17)
[2022-05-28] MEDS: Enoxaparin Sodium 40 MG/0.4 ML SYRINGE SUBCUT (10:56)
--- NOTE | 2022-05-28 11:29 | P.PNIM_ITS ---
Subjective Subjective Date of Service: 05/28/22 Interval History: Follow up vertigo, flu doing well, sitting up in bed eating breakfast Review of Systems Denies?nausea or vomiting or urinary symptoms no dizziness Physical Exam Vital Signs: Vital Signs: Last Vital Signs Temp 98.5 F 05/28/22 08:00 Pulse 67 05/28/22 08:00 Resp 18 05/28/22 08:00 BP 142/80 H 05/28/22 08:00 Pulse Ox 96 05/28/22 08:00 O2 Del Method 05/28/22 08:00 O2 Flow Rate 2 05/10/22 12:00 Oxygen Flow Rate 2 05/06/22 15:24 BMI result Body Mass Index 24.9 Appearing in no acute distress lung sounds are clear to auscultation heart regular rate rhythm, clear S1, S2 positive bowel sounds, abdomen is soft, nontender neuro patient is alert x3, no focal deficits Objective Data Active Medications Acetaminophen (Acetaminophen 325 Mg Tablet) 650 mg PO Q6H PRN PRN Reason: Pain, Mild (Pain Scale 1-3) Last Admin: 05/07/22 20:20 Dose: 650 mg Documented By: YOANA Aspirin (Aspirin Enteric Coated 81 Mg Tablet.) 81 mg PO DAILY [facility] Last Admin: 05/28/22 08:17 Dose: 81 mg Documented By: ARLET Atorvastatin Calcium (Atorvastatin Calcium 40 Mg Tablet) 40 mg PO BEDTIME [facility] Last Admin: 05/27/22 20:36 Dose: 40 mg Documented By: DAVIDORALStephen Calcium Carbonate (Calcium Carbonate 750 Mg Tab.Chew) 750 mg PO Q4H PRN PRN Reason: Heartburn Last Admin: 05/20/22 11:29 Dose: 750 mg Documented By: JACKY Docusate Sodium (Docusate Sodium 100 Mg Capsule) 100 mg PO DAILY [facility] Last Admin: 05/28/22 08:17 Dose: 100 mg Documented By: ARLET Enoxaparin Sodium (Enoxaparin Sodium 40 Mg/0.4 Ml Syringe) 40 mg SUBCUT Q24H [facility] Last Admin: 05/28/22 10:56 Dose: 40 mg Documented By: ARLET Fluticasone Propionate (Fluticasone Propionate Nasal 16 Gm [place]) 2 spray NOSTRIL-B DAILY [facility] Last Admin: 05/28/22 08:17 Dose: Not Given Documented By: ARLET Non-Admin Reason: Patient Refused Meclizine HCl (Meclizine Hcl 12.5 Mg Tablet) 12.5 mg PO Q8H PRN PRN Reason: vertigo Last Admin: 05/09/22 07:31 Dose: 12.5 mg Documented By: MARCOS Ondansetron HCl (Ondansetron Hcl 4 Mg/2 Ml Vial) 4 mg IVPUSH Q8H PRN PRN Reason: Nausea and Vomiting Last Admin: 05/11/22 02:22 Dose: 4 mg Documented By: CABRERA Pharmacy Consult (Consult Rx Perform Med Rec) 1 each MISCELLANE ONCE PRN PRN Reason: Consult order Polyethylene Glycol (Polyethylene Glycol 3350 17 Gm Powd.Pack) 17 gm PO DAILY [facility] Last Admin: 05/28/22 08:17 Dose: 17 gm Documented By: ARLET Labs CBC & Chem 7: 05/09/22 06:24 05/09/22 06:24 Assessment and Plan (1) CVA (cerebral vascular accident): Status: Acute Plan 82-year-old female with past medical history of COPD, chronic respiratory failure on 2L supplemental O2 at baseline, as well as remote history of breast cancer presents to the hospital with complaints of vomiting, as well as dizziness found to have acute influenza infection as well as subacute infarct Abnormal CT brain CT punctate 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 No acute infarct or hemorrhage on MRI neuro appreciated - felt to be incidental? 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 asa 81mg, statin PT - recommending STR, rehab bed pending, dc when? bed available vertigo meclizine prn influenza a infection previously documented that patient uses 2 L of oxygen at baseline, but patient denies using at home completed course of Tamiflu PRN breathing treatment 92% on room air COPD- No exacerbation prn breathing treatments continue home inhaler DVT prophylaxis:? lovenox reason for continued hospitalization:safe disposition Time Spent With Patient Time: Total time managing care of this patient today ____ minutes. Quality Stroke Does the patient have a stroke diagnosis?: No VTE Prior VTE?: No VTE Risk Level:: Medical - low VTE Device Contraindication: N/A - Device Ordered VTE Drug Contraindication: Treatment Not Indicated
--- NOTE | 2022-05-28 15:49 | MHC.CM.PN ---
T/W MET WITH PATIENT'S COMMUNITY LASER OPERATOR, ALEX. ALEX STATES THAT [facility] SHE WILL DC TOMORROW. ALEX WILL PROVIDE T/W WITH THE ADDRESS FOR TRANSPORTATION. REFERRALS WILL BE PLACED FOR HOME P.T.ONCE ADDRESS IS SECURED.
[2022-05-28 19:26] VITALS: BP 143/85; PULSE 85; RESP 20; TEMP 37.1; O2SAT 95
[2022-05-28] MEDS: Atorvastatin Calcium 40 MG TABLET PO (20:27)
[2022-05-29 07:59] VITALS: BP 131/84; PULSE 74; RESP 18; TEMP 36.8; O2SAT 95
[2022-05-29] MEDS: polyethylene glycoL 3350 17 GM POWD.PACK PO (08:28)
[2022-05-29] MEDS: Docusate Sodium 100 MG CAPSULE PO (08:28)
[2022-05-29] MEDS: Aspirin Enteric Coated 81 MG TABLET.DR PO (08:28)
[2022-05-29] MEDS: Enoxaparin Sodium 40 MG/0.4 ML SYRINGE SUBCUT (11:50)
--- NOTE | 2022-05-29 12:22 | MHC.CM.PN ---
PATIENT HAS A ROOM SECURED AT [facility] HER COMMUNITY ANIMAL CONTROL SPECIALIST, ALEX, IS ALSO STARTING THE PROCESS FOR LTC SO THAT PATIENT CAN SECURE A REST HOME BED OFFER. ALEX HAS ALSO APPLIED TO [facility] FOR THE PATIENT HE WILL VISIT THE LOCAL FOOD BANK FOR NECESSARY FOODS PRIOR TO START OF [facility] SERVICES. REFERRAL PLACED TO [facility] FOR HOME P.T. IMM 05/28 IN [facility] AMBUL[facility] SERVICE REQUEST TO BE MADE
--- NOTE | 2022-05-29 13:50 | P.DS_ITS ---
DS: Providers Provider Date of Service: 05/29/22 Date of admission: 05/06/22 21:36 Primary care physician: BARBARA Condon Consults: 05/06/22 21:36 Consult to Neurology Routine Consulting Provider: [facility] Reason for consultation: subacute stroke Has provider been notified: No Attending physician on discharge: Robbi Perla Discharging clinician: Dasha Melchor DS: Diagnosis Discharge Diagnosis (1) CVA (cerebral vascular accident): Status: Acute DS: Summary Hospital Course Hospital Course: HP as per admitting provider 82-year-old female? With a past medical history of COPD presents to the hospital with complaints of vomiting, as well as vertigo and generalized weakness..? Patient reports that she? of significant nausea and vomiting the night prior to as presentation, she woke up feeling very dizzy and generally weak.? Patient reports that she has chronic weakness in her lower extremity but has not worsened.? She uses a walker at baseline.? Denies any upper extremity weakness numbness or tingling, no facial droop or changes in her speech.? Patient denies any cough, no shortness of breath, no fever or chills.? Denies any chest pain, no palpitations, no abdominal pain, no diarrhea constipation, no urinary symptoms. On arrival to the ED patient hemodynamically stable (Patient reports that she uses oxygen at baseline 2 L but usually does not need it) Labs are significant for WBC count of 8.0, hemoglobin 14.7, hematocrit 44.56, labs otherwise unremarkable, UA positive for blood with no acute infection, Viral serology shows positive influenza A chest x-ray shows no pneumothorax airspace consolidation or effusion,? to lung nodules less than [address] done shows no acute intracranial abnormality, background changes of chronic microangiopathy, given the vertigo patient underwent MRI of the brain which showed a likely punctate subacute infarct in the left centrum semiovale and diffuse volume loss with chronic microvascular ischemic disease and chronic lacunar infarct patient will be admitted for further management. Abnormal CT brain. No acute stroke CT punctate 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 No acute infarct or hemorrhage on MRI neuro appreciated - felt to be incidental? 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 carotid doppler 0-49% Bilateral asa 81mg, statin vertigo meclizine prn influenza a infection previously documented that patient uses 2 L of oxygen at baseline, but patient denies using at home completed course of Tamiflu COPD- No exacerbation continue home inhaler Time Spent with Patient Time attestation: Total time managing care of this patient today ____ minutes. Discharge coordination time: Greater than 30 minutes Quality: Safe Use of Opioids Does Pt have an Active Cancer Diagnosis on the Problem List?: No Quality: Stroke Does the patient have a stroke diagnosis?: No Physical Exam Vital Signs: Vital Signs: Last Vital Signs Temp 98.2 F 05/29/22 07:59 Pulse 74 05/29/22 07:59 Resp 18 05/29/22 07:59 BP 131/84 05/29/22 07:59 Pulse Ox 95 05/29/22 07:59 O2 Del Method 05/29/22 07:59 O2 Flow Rate 2 05/10/22 12:00 Oxygen Flow Rate 2 05/06/22 15:24 BMI result Body Mass Index 24.9 Appearing in no acute distress head is normocephalic atraumatic eyes pupils are PERRLA sclera is anicteric mouth throat mucous membranes are intact and moist neck is supple no lymphadenopathy, no JVD noted lung sounds are clear to auscultation heart regular rate rhythm, clear S1, S2 positive bowel sounds, abdomen is soft, nontender neuro patient is alert x3, no focal deficits Discharge Plan Discharge Anticipated Discharge Date/Time: 05/29/22 13:44 Patient Disposition: Home Health Service Discharge Diagnosis: vertigo Influenza a Referrals: Kelly Higuera [Other] - 1 Week (05/23/22 9:00am) Discharge Medications: New atorvastatin 40 mg Tablet 40 mg PO BEDTIME Qty: 30 0RF meclizine 12.5 mg Tablet 12.5 mg PO Q8H PRN (Reason: vertigo) Qty: 9 0RF aspirin 81 mg Tablet,Delayed Release (Dr/Ec) 81 mg PO DAILY Qty: 30 0RF Continued fluticasone propionate 50 mcg/actuation [place],Suspension 2 spray INTRANASAL DAILY Rx Instructions: administer into each nostril Discharge Orders: Discharge Order (Routine); Ordered 05/29/22 Ordered By: Dasha Melchor Diet: Advance to usual diet Activity on Discharge: As tolerated Stand Alone Forms: Patient Portal Discharge page Care Plan Goals: complete resolution of symptoms Health Concerns: vertigo Influenza a Plan of Treatment: Follow up with primary care provider as needed Take all medications as prescribed Assessment: See discharge summary
--- NOTE | 2022-05-29 14:09 | MHC.CM.PN ---
PATIENT TO DC TO HER NEW APARTMENT FOR 330. COMMUNITY SPRAY OPERATOR ALEX [phone] AWARE OF PLAN. HE WILL BE AT HER APARTMENT TOMORROW TO BRING MORE FOOD, PLATES, AND [place] PATIENT DOES HAVE A MICROWAVE. ALEX IS AWARE THAT OF THIS TIME, THERE ARE NO [facility] OFFERS. ([place] [facility] IS UNABLE TO OFFER) ALEX SAYS THAT THERE IS BREAKFAST SERVED EVERY DAY AT THE [facility]. PATIENT AWARE OF THIS. ALEX ALSO HAS [facility] SENDING A NUTRIONIST OUT FOR [facility] LTC APPLICATION IS BEING STARTED
== END 2022-05-29 15:58 | disposition home health service (06) | DRG 194 ==
LOC: HO.ED 21:19 → HO.EDOVER 21:47 → HO.IMC 23:59 → HO.S3 05-21 05:58
PROVIDERS: Internal Medicine; Admitting Provider Internal Medicine; Emergency Provider Emergency Medicine; PCP Nurse Practitioner Family; Visit Provider Nurse Practitioner Acute Care
DX: J10.1 Influenza due to other identified influenza virus with other respiratory manifestations (principal); J96.10 Chronic respiratory failure, unspecified whether with hypoxia or hypercapnia; I73.9 Peripheral vascular disease, unspecified; Z20.822 Contact with and (suspected) exposure to COVID-19; Z85.3 Personal history of malignant neoplasm of breast; Z59.01 Sheltered homelessness; Z79.51 Long term (current) use of inhaled steroids; Z87.891 Personal history of nicotine dependence; Z75.1 Person awaiting admission to adequate facility elsewhere; Z99.81 Dependence on supplemental oxygen
CPT/HCPCS: 0241U; 36415; 70450; 70551; 71045; 80048; 80061; 80076; 81001; 81003; 83690; 83880; 84484; 85025; 85027; 87635; 93005; 93306; 93880; 94640; 97110; 97116; 97162; 97166; 97530; 97535; 99285; J1650; J2405; J2550